=== PATIENT | male | born 1970 | race Hispanic/Latino ===

== ENCOUNTER 2017-07-07 00:38 | Inpatient (IN) | payer BC ==
[2017-07-07] MEDS ORDERED: Albuterol-Ipratrop 3 mg / 0.5 (3 ml) UD IH STA ×2 (01:05→01:06)
[2017-07-07] MEDS ORDERED: Magnesium Sulfate 2 GM in Sodium Chloride 0.9% 100 ML IVPB ONE (01:05)
[2017-07-07] MEDS: Albuterol-Ipratrop 3 mg / 0.5 (3 ml) UD IH STA ×2 (01:10→01:18)
[2017-07-07 01:20] LABS: VENOUS BLOOD PH 7.45 (7.32-7.43)
--- NOTE | 2017-07-07 01:22 | ED PDOC ---
Arrival/HPI - General Chief Complaint: Chest Pain Time Seen by Provider: 07/07/17 00:51 Historian: Patient - History of Present Illness Narrative History of Present Illness (Text): 07/07/17 01:05 46 year old male, whose past medical history include COPD, presents to the emergency department complaining of shortness of breath for the past 2-4 days associated with chest pain that began this morning. He reports taking his abudral pump prior to arrival with minimal relief. Patient states to be having cough and fever, but denies recent travel, any chills, nausea, vomiting, diarrhea, urinary symptoms, back pain, neck pain, headache, dizziness, or any other complaints. PMD: Dr. Willis Time/Duration: Other (this morning ) Symptom Onset: Gradual Symptom Course: Unchanged Activities at Onset: Light Context: Home Past Medical History - Provider Review Nursing Documentation Reviewed: Yes - Travel History Have you recently traveled outside [place] w/in the past 3 mons?: No - Tetanus Immunization Tetanus Immunization: Unknown - Pulmonary Hx Asthma: Yes Hx Chronic Obstructive Pulmonary Disease (COPD): Yes - Psychiatric Hx Depression: No Hx Emotional Abuse: No Hx Physical Abuse: No Hx Substance Use: No - Surgical History Hx Appendectomy: Yes Hx Splenectomy: Yes Hx Tonsillectomy: Yes - Suicidal Assessment Feels Threatened In Home Enviroment: No Family/Social History - Physician Review Nursing Documentation Reviewed: Yes Family/Social History: No Known Family HX Smoking Status: y Hx Alcohol Use: No Hx Substance Use: No Hx Substance Use Treatment: No Allergies/Home Meds Allergies/Adverse Reactions: Allergies No Known Allergies Allergy (Verified 12/05/13 09:17) Home Medications: Home Meds Medication Instructions Recorded Confirmed Zolpidem [Ambien] 10 mg PO HS 12/05/13 07/07/17 Review of Systems - Physician Review All systems were reviewed & negative as marked: Yes - Review of Systems Constitutional: Fevers. absent: Other (Chills) Respiratory: SOB Cardiovascular: Chest Pain Gastrointestinal: absent: Diarrhea, Nausea, Vomiting Genitourinary Male: absent: Dysuria, Frequency, Hematuria Musculoskeletal: absent: Back Pain, Neck Pain Neurological: absent: Headache, Dizziness Physical Exam Vital Signs Reviewed: Yes Vital Signs Temp Pulse Resp BP Pulse Ox 07/07/17 02:45 99.0 F 127 H 22 127/58 L 94 L 07/07/17 02:37 137 H 23 119/81 94 L 07/07/17 02:36 102 F H 07/07/17 01:28 145 H 26 H 156/82 H 96 07/07/17 00:45 99.1 F 136 H 15 162/88 H 91 L Temperature: Afebrile Blood Pressure: Hypertensive Pulse: Tachycardic Respiratory Rate: Normal Appearance: Positive for: Well-Appearing, Non-Toxic, Comfortable Pain Distress: None Mental Status: Positive for: Alert and Oriented X 3 - Systems Exam Head: Present: Atraumatic, Normocephalic Pupils: Present: PERRL Extroacular Muscles: Present: EOMI Conjunctiva: Present: Normal Mouth: Present: Moist Mucous Membranes Neck: Present: Normal Range of Motion Respiratory/Chest: Present: Wheezes (Mild expiratory bilateral wheeze). No: Respiratory Distress, Accessory Muscle Use Cardiovascular: Present: Normal S1, S2, Tachycardic. No: Murmurs Abdomen: Present: Normal Bowel Sounds. No: Tenderness, Distention, Peritoneal Signs Back: Present: Normal Inspection Upper Extremity: Present: Normal Inspection. No: Cyanosis, Edema Lower Extremity: Present: Normal Inspection. No: Edema Neurological: Present: GCS=15, CN II-XII Intact, Speech Normal Skin: Present: Warm, Dry, Normal Color. No: Rashes Psychiatric: Present: Alert, Oriented x 3, Normal Insight, Normal Concentration Medical Decision Making ED Course and Treatment: 07/07/17 01:05 Impression: 46 year old male presents complaining of shortness of breath that began 2-4 days ago and chest pain that began this morning. Plan: -- VBG -- EKG -- Labs: D Dimer -- Chest X-ray -- [place] -- IV Fluids -- Tylenol -- Blood Culture -- Urine Culture -- Urinalysis -- Reassess and disposition Progress Notes: EKG shows Sinus Tachycardia at 146 BPM with wide axis deviation. Interpreted by me. CXR Impression: As read by me, right middle love infiltrate. 07/07/17 03:[address] Willis who wishes to hold off on anticoagulation. Accepts patient into Remote Telemetry for pneumonia. - Lab Interpretations Lab Results: 07/07/17 00:55 07/07/17 01:50 Lab Results 07/07/17 02:30: Urine Color Yellow, Urine Appearance Cloudy, Urine pH 6.0, Ur Specific [place] 1.010, Urine Protein 30 H, Urine Glucose (UA) Negative, Urine Ketones Trace H, Urine Blood Large H, Urine Nitrate Negative, Urine Bilirubin Negative, Urine Urobilinogen 1.0 H, Ur Leukocyte Esterase Negative, Urine RBC 2 - 5, Urine WBC 0 - 2 07/07/17 01:50: Phosphorus 1.7 L, Magnesium 1.9, NT-Pro-B Natriuret Pep 323 07/07/17 01:50: Sodium 127 L, Chloride 96 L, Potassium 3.4 L, Carbon Dioxide 19 L, Anion Gap 15, BUN 14, Creatinine 1.0, Est GFR ( Amer) > 60, Est GFR ( Non-Af Amer) > 60, Random Glucose 137 H, Calcium 7.9 L, Total Bilirubin 1.0, AST 44, ALT 33, Alkaline Phosphatase 72, Lactate Dehydrogenase 804 H, Total Creatine Kinase 343 H, CK-MB (CK-2) 0.6, CK-MB (CK-2) % Cancelled, Troponin I < 0.01, Total Protein 6.9, Albumin 3.6, Globulin 3.3, Albumin/Globulin Ratio 1.1 07/07/17 01:39: POC Glucose (mg/dL) 143 H 07/07/17 00:55: PT 13.5 H, INR 1.25 H, APTT 41.1 H, D-Dimer, Quantitative 3.21 H 07/07/17 00:55: WBC 19.4 H, RBC 5.40, Hgb 17.6, Hct 49.2, MCV 91.1, MCH 32.6, MCHC 35.8, RDW 13.9, Plt Count 255, MPV 10.4, Gran % 85.7 H, Lymph % (Auto) 8.9 L, Hand % (Auto) 5.2, Eos % (Auto) 0.0 L, Baso % (Auto) 0.2, Gran # 16.61 H, Lymph # 1.7, Hand # 1.0 H, Eos # 0.0, Baso # 0.03 07/07/17 00:55: pO2 30, VBG pH 7.45 H, VBG pCO2 32.0 L, VBG HCO3 22.2, VBG Total CO2 23.2, VBG O2 Sat (Calc) 67.0 H, VBG Base Excess -1.0 L, VBG Potassium 3.7, Sodium 125.0 L, Chloride 93.0 L, Glucose 163 H, Lactate 2.7 H, FiO2 21.0, Venous Blood Potassium 3.7 I have reviewed the lab results: Yes - RAD Interpretation Radiology Orders: 07/07/17 00:51 CHEST PORTABLE [RAD] Stat - EKG Interpretation Interpreted by ED Physician: Yes Type: 12 lead EKG - Medication Orders Current Medication Orders: Discontinued Medications Acetaminophen (Tylenol 325mg Tab) 975 mg PO STAT STA Stop: 07/07/17 02:15 Last Admin: 07/07/17 02:36 Dose: 975 mg MAR Pain/Vitals Document 07/07/17 02:36 JOL (Rec: 07/07/17 02:36 [facility] [place] [id number] Pain Reassessment Is This A Pain ReAssessment? No Sleep Is patient sleeping during reassessment? No Presence of Pain Presence of Pain No Vitals Temperature (97.6 F-99.6 F) 102 F Temperature Source Oral Albuterol/Ipratropium (Duoneb 3 Mg/0.5 Mg (3 Ml) Ud) 3 ml IH STAT STA Stop: 07/07/17 01:05 Last Admin: 07/07/17 01:18 Dose: 3 ml Albuterol/Ipratropium (Duoneb 3 Mg/0.5 Mg (3 Ml) Ud) 3 ml IH STAT STA Stop: 07/07/17 01:06 Albuterol/Ipratropium (Duoneb 3 Mg/0.5 Mg (3 Ml) Ud) 3 ml IH STAT STA Stop: 07/07/17 01:07 Last Admin: 07/07/17 01:37 Dose: 3 ml Magnesium Sulfate 2 gm/ Sodium (Chloride) 104 mls @ 102 mls/hr IVPB ONCE ONE Stop: 07/07/17 02:06 Last Admin: 07/07/17 01:19 Dose: 102 mls/hr eMAR Start Stop Document 07/07/17 01:19 JOL (Rec: 07/07/17 01:19 [facility] [id number] Intravenous Solution Start Date 07/07/17 Start Time 01:19 End Date 07/07/17 End time 02:21 Total Infusion Time 62 Ceftriaxone Sodium (Rocephin 1 Gram Ivpb) 1 gm in 100 mls @ 200 mls/hr IVPB STAT STA PRN Reason: Protocol Stop: 07/07/17 01:57 Last Admin: 07/07/17 01:53 Dose: 200 mls/hr eMAR Start Stop Document 07/07/17 01:53 JOL (Rec: 07/07/17 01:53 [facility] [id number] Intravenous Solution Start Date 07/07/17 Start Time 01:53 End Date 07/07/17 End time 02:23 Total Infusion Time 30 Azithromycin (Zithromax 500mg In Ns) 500 mg in 250 mls @ 167 mls/hr IVPB STAT STA PRN Reason: Protocol Stop: 07/07/17 03:02 Last Admin: 07/07/17 02:24 Dose: 167 mls/hr eMAR Start Stop Document 07/07/17 02:24 JOL (Rec: 07/07/17 02:36 [facility] [id number] Intravenous Solution Start Date 07/07/17 Start Time 02:24 End Date 07/07/17 End time 03:54 Total Infusion Time 90 Sodium Chloride (Sodium Chloride 0.9%) 1,000 mls @ 999 mls/hr IV .Q1H1M STA Stop: 07/07/17 03:20 Last Admin: 07/07/17 01:40 Dose: 999 mls/hr eMAR Start Stop Document 07/07/17 01:40 JOL (Rec: 07/07/17 02:37 [facility] [id number] Intravenous Solution Start Date 07/07/17 Start Time 01:40 End Date 07/07/17 End time 02:41 Total Infusion Time 61 Methylprednisolone (Solu-Medrol) 125 mg IVP STAT STA Stop: 07/07/17 01:05 Last Admin: 07/07/17 01:10 Dose: 125 mg IVP Administration Document 07/07/17 01:10 JOL (Rec: 07/07/17 01:10 [facility] [id number] Charges for Administration # of IVP Administrations 1 - Scribe Statement The provider has reviewed the documentation as recorded by the Alessandro Walsh All medical record entries made by the Alessandro were at my direction and personally dictated by me. I have reviewed the chart and agree that the record accurately reflects my personal performance of the history, physical exam, medical decision making, and the department course for this patient. I have also personally directed, reviewed, and agree with the discharge instructions and disposition. Disposition/Present on Arrival - Present on Arrival Any Indicators Present on Arrival: No History of DVT/PE: No History of Uncontrolled Diabetes: No Urinary Catheter: No History of Decub. Ulcer: No History Surgical Site Infection Following: None - Disposition Have Diagnosis and Disposition been Completed?: Yes Diagnosis: Pneumonia Disposition: HOSPITALIZED Disposition Time: 03:00 Condition: STABLE
[2017-07-07 01:23] LABS: BASO # 0.03 K/mm3 (0.0-2.0); BASO % 0.2 % (0.0-3.0); GRAN # 16.61 (1.4-6.5); GRAN % 85.7 % (50.0-68.0); HEMATOCRIT 49.2 % (42.0-52.0); LYMPH # 1.7 (1.2-3.4); LYMPH % 8.9 % (22.0-35.0); MEAN CELL VOLUME 91.1 fl (80.0-105.0); MEAN CORPUSCULAR HEMOGLOBIN 32.6 pg (25.0-35.0); MEAN CORPUSCULAR HGB CONC 35.8 g/dl (31.0-37.0); MEAN PLATELET VOLUME 10.4 fl (7.0-11.0); MONO % 5.2 % (1.0-6.0); RED CELL DISTRIBUTION WIDTH 13.9 % (11.5-14.5); WHITE BLOOD COUNT 19.4 10^3/ul (4.5-11.0)
[2017-07-07] MEDS ORDERED: cefTRIAXone 1 gm 1 GM/100 ML BAG IVPB STA (01:28)
[2017-07-07] MEDS ORDERED: Azithromycin 500MG/NS 250ml 500 MG/250 ML BAG IVPB STA (01:33)
[2017-07-07 01:38] LABS: INR 1.25 (0.93-1.08); PARTIAL THROMBOPLASTIN TIME 41.1 Seconds (23.7-30.8)
[2017-07-07 02:12] LABS: ALB/GLOB RATIO 1.1 (1.1-1.8); ALKALINE PHOSPHATASE 72 U/L (38-126); ALT/SGPT 33 U/L (7-56); AST/SGOT 44 U/L (17-59); BLOOD UREA NITROGEN 14 mg/dL (7-21); CALCIUM 7.9 mg/dL (8.4-10.5); CARBON DIOXIDE 19 mmol/L (21-33); CHLORIDE 96 mmol/L (98-107); GFR AFRICAN-AMERICAN > 60; GLUCOSE,RANDOM 137 mg/dL (70-110); POTASSIUM 3.4 mmol/L (3.6-5.0); SODIUM 127 mmol/L (132-148); TOTAL PROTEIN 6.9 g/dL (5.8-8.3)
[2017-07-07 02:13] LABS: MAGNESIUM 1.9 mg/dL (1.7-2.2); PHOSPHOROUS 1.7 mg/dL (2.5-4.5)
[2017-07-07] MEDS ORDERED: Sodium Chloride 0.9% 1,000 ML IV STA ×3 (02:20→08:45)
[2017-07-07 02:28] LABS: TROPONIN I < 0.01 ng/mL
[2017-07-07 02:50] LABS: URINE BILIRUBIN NEGATIVE (NEGATIVE); URINE BLOOD LARGE (NEGATIVE); URINE GLUCOSE (UA) NEGATIVE (NEGATIVE); URINE KETONE TRACE mg/dL (NEGATIVE); URINE LEUKOCYTE ESTERASE NEGATIVE Leu/uL (NEGATIVE); URINE PROTEIN 30 mg/dL (<30 mg/dL)
[2017-07-07 03:03] LABS: D DIMER 3.21 mg/L FEU (0-0.50)
[2017-07-07 03:43] LABS: URINE APPEARANCE CLOUDY (CLEAR); URINE COLOR YELLOW (YELLOW)
[2017-07-07 04:15] LABS: VENOUS BLOOD GAS BASE EXCESS -4.4 mmol/L (0.0-2.0); VENOUS BLOOD PH 7.42 (7.32-7.43)
[2017-07-07 04:26] LABS: URINE WBC 0 - 2 /hpf (0-6)
[2017-07-07 05:17] VITALS: BMI 31.2
[2017-07-07 07:30] LABS: VENOUS BLOOD GAS BASE EXCESS -3.5 mmol/L (0.0-2.0); VENOUS BLOOD PH 7.32 (7.32-7.43)
--- NOTE | 2017-07-07 08:26 | RAD ---
HISTORY: chest pain COMPARISON: 09/30/2015. FINDINGS: LUNGS: There is consolidation in the right lower lobe. The left lung is clear. There is mild pulmonary venous congestion. PLEURA: No significant pleural effusion identified, no pneumothorax apparent. CARDIOVASCULAR: There is mild cardiomegaly. OSSEOUS STRUCTURES: No significant abnormalities. VISUALIZED UPPER ABDOMEN: Normal. OTHER FINDINGS: None. IMPRESSION: Right lower lobe pneumonia. Follow-up after medical management is recommended to ensure complete resolution.
[2017-07-07] MEDS ORDERED: Albuterol-Ipratrop 3 mg / 0.5 (3 ml) UD IH PRN (08:41)
[2017-07-07] MEDS ORDERED: Azithromycin 500MG/NS 250ml 500 MG/250 ML BAG IVPB SCH (11:25)
[2017-07-07] MEDS ORDERED: cefTRIAXone 1 gm 1 GM/100 ML BAG IVPB SCH (11:25)
[2017-07-07 11:26] LABS: VENOUS BLOOD GAS BASE EXCESS 0.3 mmol/L (0.0-2.0); VENOUS BLOOD PH 7.39 (7.32-7.43)
[2017-07-07] MEDS: Albuterol-Ipratrop 3 mg / 0.5 (3 ml) UD IH SCH ×4 (11:47→23:53)
--- NOTE | 2017-07-07 13:42 | HP ---
HISTORY OF PRESENT ILLNESS: The patient is a 46-year-old man with a long- standing smoking history and probable COPD who presented to [facility] ED for evaluation of a 3-day history of progressively worsening chest tightness, dyspnea, and pleuritic chest pain. The patient reports that approximately 3 days ago he was exposed to coworkers with URI type symptoms and subsequently developed his aforementioned symptoms. Over the course of the following 36 to 48 hours he developed increasing chest tightness with a sharp stabbing right sided chest pain as well as fevers, chills and rigors. Given the worsening severity of the symptoms, he presented to the ED for further evaluation. Upon arrival to the ED, he was noted to be tachycardiac with a pulse in the 150s and tachypneic with a respiratory rate of 26. A chest x-ray which was obtained demonstrated a right lower lobe pneumonia and the patient was subsequently admitted to the remote telemetry [facility] for continued management of right lower lobe pneumonia. This morning on examination the patient reports improvement since admission but continues to endorse pleuritic chest pain, but otherwise offers no complaints. PAST MEDICAL HISTORY: As per HPI. PAST SURGICAL HISTORY: As per HPI. ALLERGIES: NO KNOWN DRUG ALLERGIES. MEDICATIONS: Ambien 10 mg p.o. at bedtime p.r.n. FAMILY HISTORY: Noncontributory. SOCIAL HISTORY: The patient reports an active 30-pack year smoking history and social alcohol use. He denies illicit drug abuse. REVIEW OF SYSTEMS: A 14-point review of systems is negative except as per HPI. Further more is negative for lower extremity edema, hemoptysis, exertional dyspnea or palpitations. PHYSICAL EXAMINATION: VITAL SIGNS: Temperature 97.7, pulse 87, blood pressure 127/82, respiratory rate 20, oxygen saturation 97% on room air. GENERAL: No apparent distress. HEENT: PERRL. EOMI. No scleral icterus. No conjunctival pallor. NECK: No JVD. No bruits. LUNGS: Crackles midway to the right posterior hemithorax. CARDIOVASCULAR: Regular rate and rhythm. Normal S1 and S2. ABDOMEN: Normoactive bowel sounds. Soft, nontender, nondistended. EXTREMITIES: No edema. NEUROLOGIC: Awake, alert, and oriented x3. No focal motor deficits. LABORATORY DATA: WBC 19.4 with 86% neutrophils, hemoglobin 18, hematocrit 50, platelets 255. Sodium 127, potassium 3.4, chloride 96, bicarbonate 19, BUN 14, creatinine 1, glucose 137. IMAGING STUDIES: Chest x-ray demonstrates right lower lobe pneumonia. ASSESSMENT: The patient is a 46-year-old man with a long-standing smoking history and probable COPD who presented to [facility] for evaluation of a 3-day history of worsening dyspnea, cough productive of green sputum and malaise and who was admitted to the remote telemetry [facility] for management of right lower lobe pneumonia. PLAN: 1. Community-acquired pneumonia. Continue supplemental oxygen and bronchodilators as needed. We will check urine strep pneumonia and urine legionella. Dr. Lombardi of infectious disease is being consulted for further evaluation and recommendations. 2. Hyponatremia. Etiology is likely secondary to poor p.o. intake as the patient described poor oral intake over the preceding 3 days. We will continue with IV fluid hydration consisting of normal saline at 125 mL per hour. 3. Lactic acidosis. Labs demonstrate a lactate of 3.8. Etiology is likely secondary to sepsis in the setting of community-acquired pneumonia. Continue with IV fluid hydration as above. We will repeat a lactate in the morning. 4. Elevated D-dimer. Labs demonstrated a D-dimer of 3.21 on admission. This likely is secondary to the patient's underlying pneumonia as he does not endorse any risk factors for a pulmonary embolism. Furthermore, the patient is not tachypneic and not hypoxic with an oxygen saturation of 97% on room air. We will continue to monitor. 5. Prophylaxis. GI prophylaxis not indicated as the patient is eating. DVT prophylaxis is not indicated as the patient is ambulatory. CODE STATUS: Full code. Deacon Willis MD [place]
--- NOTE | 2017-07-07 14:25 | CARD ---
APPROVED REPORT EKG Measurement Heart [id number] <Conclusion> Poor data quality, interpretation may be adversely affected Sinus tachycardia Possible Left atrial enlargement Rightward axis Borderline ECG
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
[2017-07-07] MEDS ORDERED: Sodium Chloride 0.9% 1,000 ML IV SCH (18:30)
[2017-07-07] MEDS: guaiFENesin-Codeine 100-10mg/5ml Syrup (5 ml) UD PO PRN (20:42)
--- NOTE | 2017-07-07 22:46 | CP.PCM.PN ---
Subjective - Date & Time of Evaluation Date of Evaluation: 07/07/17 Time of Evaluation: 22:44 - Subjective Subjective: Nurse calls and tells that his vitals are as follows: RR 30-40/min HR 140/mi n 140/80 94% on 2L/min. T100.3*F I saw patient at bedside. States that he has sob, chest pain after coughing a lot. Denies sweating, palpitations. Here for PNA,COPD, sob, chills, fever. This 46 year old white male is admitted with 3 days history of dyspnea, chest tightness, pleuritic chest pain, cough. Has PMH of COPD, renal calculus, chronic back pain, smoker, spleenectomy, tonsillectomy. Objective - Vital Signs/Intake and Output Vital Signs (last 24 hours): Temp Pulse Resp BP Pulse Ox 98.9 F 120 H 19 140/86 93 L 07/07/17 20:48 07/07/17 20:48 07/07/17 19:01 07/07/17 19:01 07/07/17 20:48 Intake and Output: 07/07/17 07/08/17 18:59 06:59 Intake Total 1400 Output Total 4 Balance 1396 - Medications Medications: Current Medications Acetaminophen (Tylenol 325mg Tab) 650 mg PO Q6H PRN PRN Reason: Fever >100.4 F Last Admin: 07/07/17 16:09 Dose: 650 mg Albuterol/Ipratropium (Duoneb 3 Mg/0.5 Mg (3 Ml) Ud) 3 ml IH Q2H PRN PRN Reason: Shortness of Breath Last Admin: 07/07/17 20:31 Dose: 3 ml Albuterol/Ipratropium (Duoneb 3 Mg/0.5 Mg (3 Ml) Ud) 3 ml IH [id number] MARIO ALBERTO Last Admin: 07/07/17 20:19 Dose: 3 ml Guaifenesin/Codeine Phosphate (Robitussin W/Codeine) 5 ml PO Q4H PRN PRN Reason: Cough and congestion Last Admin: 07/07/17 20:42 Dose: 5 ml Ceftriaxone Sodium (Rocephin 1 Gram Ivpb) 1 gm in 100 mls @ 100 mls/hr IVPB DAILY MARIO ALBERTO PRN Reason: Protocol Stop: 07/16/17 11:26 Last Admin: 07/07/17 11:48 Dose: 100 mls/hr Azithromycin (Zithromax 500mg In Ns) 500 mg in 250 mls @ 167 mls/hr IVPB DAILY MARIO ALBERTO PRN Reason: Protocol Stop: 07/16/17 11:26 Last Admin: 07/07/17 11:48 Dose: 167 mls/hr Sodium Chloride (Sodium Chloride 0.9%) 1,000 mls @ 125 mls/hr IV .Q8H MARIO ALBERTO Last Admin: 07/07/17 18:29 Dose: 125 mls/hr Zolpidem Tartrate (Ambien) 10 mg PO HS PRN; Protocol PRN Reason: Insomnia Last Admin: 07/07/17 21:05 Dose: 10 mg - Labs Labs: PT 13.5 Seconds (9.9-11.8) H 07/07/17 00:55 INR 1.25 (0.93-1.08) H 07/07/17 00:55 APTT 41.1 Seconds (23.7-30.8) H 07/07/17 00:55 Laboratory Last Values WBC 19.4 10^3/ul (4.5-11.0) H 07/07/17 00:55 RBC 5.40 10^6/uL (3.5-6.1) 07/07/17 00:55 Hgb 17.6 g/dL (14.0-18.0) 07/07/17 00:55 Hct 49.2 % (42.0-52.0) 07/07/17 00:55 MCV 91.1 fl (80.0-105.0) 07/07/17 00:55 MCH 32.6 pg (25.0-35.0) 07/07/17 00:55 MCHC 35.8 g/dl (31.0-37.0) 07/07/17 00:55 RDW 13.9 % (11.5-14.5) 07/07/17 00:55 Plt Count 255 10^3/uL (120.0-450.0) 07/07/17 00:55 MPV 10.4 fl (7.0-11.0) 07/07/17 00:55 Gran % 85.7 % (50.0-68.0) H 07/07/17 00:55 Lymph % (Auto) 8.9 % (22.0-35.0) L 07/07/17 00:55 Br[place]ley % (Auto) 5.2 % (1.0-6.0) 07/07/17 00:55 Eos % (Auto) 0.0 % (1.5-5.0) L 07/07/17 00:55 Baso % (Auto) 0.2 % (0.0-3.0) 07/07/17 00:55 Gran # 16.61 (1.4-6.5) H 07/07/17 00:55 Lymph # 1.7 (1.2-3.4) 07/07/17 00:55 Brantley # 1.0 (0.1-0.6) H 07/07/17 00:55 Eos # 0.0 (0.0-0.7) 07/07/17 00:55 Baso # 0.03 K/mm3 (0.0-2.0) 07/07/17 00:55 PT 13.5 Seconds (9.9-11.8) H 07/07/17 00:55 INR 1.25 (0.93-1.08) H 07/07/17 00:55 APTT 41.1 Seconds (23.7-30.8) H 07/07/17 00:55 D-Dimer, Quantitative 3.21 mg/L FEU (0-0.50) H 07/07/17 00:55 pO2 23 mm/Hg (30-55) L 07/07/17 11:10 VBG pH 7.39 (7.32-7.43) 07/07/17 11:10 VBG pCO2 42.0 (40-60) 07/07/17 11:10 VBG HCO3 25.4 mmol/l (21-28) 07/07/17 11:10 VBG Total CO2 26.7 mmol.L (22-28) 07/07/17 11:10 VBG O2 Sat (Calc) 45.2 % (40-65) 07/07/17 11:10 VBG Base Excess 0.3 mmol/L (0.0-2.0) 07/07/17 11:10 VBG Potassium 4.4 mmol/L (3.6-5.2) 07/07/17 11:10 Sodium 129.0 mmol/L (132-148) L 07/07/17 11:10 Chloride 96.0 mmol/L (98-107) L 07/07/17 11:10 Glucose 222 mg/dl (75-110) H 07/07/17 11:10 Lactate 3.8 mmol/L (0.7-2.1) H 07/07/17 11:10 FiO2 21.0 % 07/07/17 11:10 Sodium 127 mmol/L (132-148) L 07/07/17 01:50 Potassium 3.4 mmol/L (3.6-5.0) L 07/07/17 01:50 Chloride 96 mmol/L (98-107) L 07/07/17 01:50 Carbon Dioxide 19 mmol/L (21-33) L 07/07/17 01:50 Anion Gap 15 (10-20) 07/07/17 01:50 BUN 14 mg/dL (7-21) 07/07/17 01:50 Creatinine 1.0 mg/dL (0.5-1.4) 07/07/17 01:50 Est GFR ( Amer) > 60 07/07/17 01:50 Est GFR (Non-Af Amer) > 60 07/07/17 01:50 POC Glucose (mg/dL) 143 mg/dL (65-110) H 07/07/17 01:39 Random Glucose 137 mg/dL (70-110) H 07/07/17 01:50 Calcium 7.9 mg/dL (8.4-10.5) L 07/07/17 01:50 Phosphorus 1.7 mg/dL (2.5-4.5) L 07/07/17 01:50 Magnesium 1.9 mg/dL (1.7-2.2) 07/07/17 01:50 Total Bilirubin 1.0 mg/dL (0.2-1.3) 07/07/17 01:50 AST 44 U/L (17-59) 07/07/17 01:50 ALT 33 U/L (7-56) 07/07/17 01:50 Alkaline Phosphatase 72 U/L (38-126) 07/07/17 01:50 Lactate Dehydrogenase 804 U/L (333-699) H 07/07/17 01:50 Total Creatine Kinase 343 U/L (35-230) H 07/07/17 01:50 CK-MB (CK-2) 0.6 ng/mL (0.0-3.6) 07/07/17 01:50 CK-MB (CK-2) % Cancelled 07/07/17 01:50 Troponin I < 0.01 ng/mL 07/07/17 01:50 NT-Pro-B Natriuret Pep 323 pg/mL (0-450) 07/07/17 01:50 Total Protein 6.9 g/dL (5.8-8.3) 07/07/17 01:50 Albumin 3.6 g/dL (3.0-4.8) 07/07/17 01:50 Globulin 3.3 gm/dL 07/07/17 01:50 Albumin/Globulin Ratio 1.1 (1.1-1.8) 07/07/17 01:50 Procalcitonin 1.79 NG/ML (0.19-0.49) H 07/07/17 11:28 Venous Blood Potassium 4.4 mmol/L (3.6-5.2) 07/07/17 11:10 Urine Color Yellow (YELLOW) 07/07/17 02:30 Urine Appearance Cloudy (CLEAR) 07/07/17 02:30 Urine pH 6.0 (4.7-8.0) 07/07/17 02:30 Ur Specific [place] 1.010 (1.005-1.035) 07/07/17 02:30 Urine Protein 30 mg/dL (<30 mg/dL) H 07/07/17 02:30 Urine Glucose (UA) Negative mg/dL (NEGATIVE) 07/07/17 02:30 Urine Ketones Trace mg/dL (NEGATIVE) H 07/07/17 02:30 Urine Blood Large (NEGATIVE) H 07/07/17 02:30 Urine Nitrate Negative (NEGATIVE) 07/07/17 02:30 Urine Bilirubin Negative (NEGATIVE) 07/07/17 02:30 Urine Urobilinogen 1.0 E.U./dL (<1 E.U./dL) H 07/07/17 02:30 Ur Leukocyte Esterase Negative Tawanna/uL (NEGATIVE) 07/07/17 02:30 Urine RBC 2 - 5 /hpf (0-2) 07/07/17 02:30 Urine WBC 0 - 2 /hpf (0-6) 07/07/17 02:30 Ur L.pneumophila Ag Positive (NEGATIVE) H 07/07/17 13:23 - Constitutional Appears: Well, Other (Mild respiratory distress.) - Head Exam Head Exam: ATRAUMATIC, NORMAL INSPECTION, NORMOCEPHALIC - Eye Exam Eye Exam: Normal appearance - ENT Exam ENT Exam: Normal External Ear Exam - Neck Exam Neck Exam: Normal Inspection - Respiratory Exam Respiratory Exam: Rales (Bilateral basal.), Respiratory Distress (Mild.). absent: Accessory Muscle Use, Rhonchi, Wheezes, Stridor - Cardiovascular Exam Cardiovascular Exam: Tachycardia, REGULAR RHYTHM, +S1 (Normal.), +S2 (Normal.). absent: JVD - GI/Abdominal Exam GI & Abdominal Exam: absent: Distended - Rectal Exam Rectal Exam: Deferred - Exam Additional comments: Deferred. - Extremities Exam Extremities Exam: Normal Inspection - Back Exam Back Exam: NORMAL INSPECTION - Neurological Exam Neurological Exam: Alert, Awake, Oriented x3 - Psychiatric Exam Psychiatric exam: Normal Affect, Normal Mood - Skin Skin Exam: Normal Color Assessment and Plan - Assessment and Plan (Free Text) Assessment: Tachypnea. Tachycardia. Pneumonia. R/O FL. Elevated D-dimer. Leukocytosis. R/o Sepsis. COPD. Obesity. Hypokalemia. Hypophosphatemia. Smoker. Chronic back pain. Plan: CBC with diff. BMP. Magnesium. Phosphorous. Troponin. BNP. EKG.------------->Sinus tachycardia.Inverted T in lead II, Q in V2. Lovenox 40mg SC stat. CXR.--------------------> Increase in bilateral pneumonia, ? pulmonary edema. Lopressor 5 mg IV Stat. Stat nebulizer treatment with Xopenex 1.25mg. DC duoneb, replace with Xopenex. Lasix 40 mg IV stat. Sodium phosphate 15 mMols x2.
[2017-07-07] MEDS ORDERED: Metoprolol 1 mg/ml Inj IVP STA (22:51)
[2017-07-07] MEDS ORDERED: Levalbuterol 1.25 MG/3 ML Inhal Soln UD IH STA (23:13)
[2017-07-07] MEDS ORDERED: Enoxaparin 40 mg Syringe SC STA (23:14)
[2017-07-08 00:11] LABS: VENOUS BLOOD GAS BASE EXCESS -1.7 mmol/L (0.0-2.0); VENOUS BLOOD PH 7.39 (7.32-7.43)
[2017-07-08 00:12] LABS: BASO # 0.01 K/mm3 (0.0-2.0); GRAN # 23.34 (1.4-6.5); GRAN % 94.5 % (50.0-68.0); HEMATOCRIT 43.3 % (42.0-52.0); LYMPH # 0.6 (1.2-3.4); LYMPH % 2.6 % (22.0-35.0); MEAN CELL VOLUME 90.2 fl (80.0-105.0); MEAN CORPUSCULAR HEMOGLOBIN 32.9 pg (25.0-35.0); MEAN CORPUSCULAR HGB CONC 36.5 g/dl (31.0-37.0); MEAN PLATELET VOLUME 10.7 fl (7.0-11.0); MONO # 0.7 (0.1-0.6); MONO % 2.9 % (1.0-6.0); PLATELET COUNT 252 10^3/uL (120.0-450.0); WHITE BLOOD COUNT 24.7 10^3/ul (4.5-11.0)
[2017-07-08 00:16] LABS: BLOOD UREA NITROGEN 19 mg/dL (7-21); CALCIUM 8.6 mg/dL (8.4-10.5); CARBON DIOXIDE 25 mmol/L (21-33); CHLORIDE 98 mmol/L (98-107); GFR AFRICAN-AMERICAN > 60; GLUCOSE,RANDOM 133 mg/dL (70-110); MAGNESIUM 2.2 mg/dL (1.7-2.2); POTASSIUM 3.9 mmol/L (3.6-5.0); SODIUM 133 mmol/L (132-148)
[2017-07-08 00:26] LABS: PHOSPHOROUS 1.4 mg/dL (2.5-4.5)
[2017-07-08] MEDS ORDERED: Sodium Phosphate 15 MMOLE in Sodium Chloride 0.9% 250 ML IVPB ONE ×2 (00:27→06:00)
[2017-07-08 00:51] LABS: TROPONIN I 0.01 ng/mL
[2017-07-08 01:01] LABS: NEUTROPHIL 80 % (50.0-70.0)
[2017-07-08 01:02] LABS: BAND 15 % (0-2); PLATELET ESTIMATE NORMAL (NORMAL)
[2017-07-08] MEDS: guaiFENesin-Codeine 100-10mg/5ml Syrup (5 ml) UD PO PRN (01:12)
[2017-07-08] MEDS: Levalbuterol 0.63 MG/3 ML Inhal Soln UD IH SCH ×5 (04:30→20:08)
[2017-07-08] MEDS ORDERED: Metoprolol 1 mg/ml Inj IVP STA (05:28)
[2017-07-08 07:49] LABS: ARTERIAL BLOOD GAS HCO3 21.3 mmol/L (21-28); ARTERIAL BLOOD GAS O2 CAPACITY 22.2 mL/dl (16-24); ARTERIAL BLOOD GAS O2 CONTENT 22.1 ML/dl (15-23); ARTERIAL BLOOD GAS PH 7.49 (7.35-7.45); ARTERIAL BLOOD HGB O2 SAT 96.8 % (95.0-98.0); CARBOXYHEMOGLOBIN 1.5 % (0.5-1.5); HHB 0.5 % (0-5); METHEMOGLOBIN 1.2 % (0.0-3.0)
--- NOTE | 2017-07-08 07:55 | RAD ---
HISTORY: tachypnea, tachycardia COMPARISON: Portal chest 11/17/2016. FINDINGS: LUNGS: Interval bilateral perihilar patchy density is increased and on the could represent worsening pneumonia. PLEURA: No significant pleural effusion identified, no pneumothorax apparent. CARDIOVASCULAR: Prominent central hilar vascular markings are appreciated suspicious for pulmonary venous congestion. Further clinical correlation is advised as worsening pneumonia remains a possibility as discussed above. OSSEOUS STRUCTURES: No significant abnormalities. VISUALIZED UPPER ABDOMEN: Normal. OTHER FINDINGS: None. IMPRESSION: Worsening pulmonary venous congestion versus pneumonia bilaterally. Clinically correlate further.
[2017-07-08 08:00] LABS: BASO # 0.01 K/mm3 (0.0-2.0); GRAN # 22.28 (1.4-6.5); GRAN % 92.6 % (50.0-68.0); HEMATOCRIT 44.2 % (42.0-52.0); LYMPH # 0.9 (1.2-3.4); LYMPH % 3.7 % (22.0-35.0); MEAN CORPUSCULAR HGB CONC 36.7 g/dl (31.0-37.0); MONO # 0.9 (0.1-0.6); MONO % 3.7 % (1.0-6.0); RED CELL DISTRIBUTION WIDTH 14.1 % (11.5-14.5); WHITE BLOOD COUNT 24.1 10^3/ul (4.5-11.0)
[2017-07-08 08:01] LABS: VENOUS BLOOD GAS BASE EXCESS -0.4 mmol/L (0.0-2.0); VENOUS BLOOD PH 7.45 (7.32-7.43)
[2017-07-08 08:12] LABS: ALB/GLOB RATIO 1.1 (1.1-1.8); ALKALINE PHOSPHATASE 76 U/L (38-126); ALT/SGPT 41 U/L (7-56); AST/SGOT 86 U/L (17-59); BILIRUBIN,TOTAL 0.6 mg/dL (0.2-1.3); BLOOD UREA NITROGEN 23 mg/dL (7-21); CALCIUM 8.4 mg/dL (8.4-10.5); CARBON DIOXIDE 24 mmol/L (21-33); CHLORIDE 95 mmol/L (98-107); GFR AFRICAN-AMERICAN > 60; GLUCOSE,RANDOM 121 mg/dL (70-110); POTASSIUM 3.7 mmol/L (3.6-5.0); SODIUM 131 mmol/L (132-148); TOTAL PROTEIN 7.3 g/dL (5.8-8.3)
--- NOTE | 2017-07-08 08:12 | PCM.RRT ---
BICYCLE MECHANIC Nurse Assessment - Situation Date: 07/08/17 Time BICYCLE MECHANIC was called: 07:15 BICYCLE MECHANIC Responder Arrival Time: 07:18 BICYCLE MECHANIC Location:: [address] [place] [address] Room Number: 369/02 BICYCLE MECHANIC Reason for Call: Respiratory Distress, O2 Saturation below 90% BICYCLE MECHANIC Called By: RN - IV IV Inserted during BICYCLE MECHANIC?: No - Respiratory Oxygen Delivery Method: BiPAP @% Received Nebulizer Treatments:: Yes Was the Patient Ventilated with Bag/Mask 100% O2?: No Secretions Suctioned?: No Was the Patient Intubated?: No Was the Patient Placed on a Ventilator?: No - Medication Medications Administered During BICYCLE MECHANIC: xopenex, tylenol, lasix, zofran - Diagnostic Test Ordered EKG: Yes Chest X-Ray: No (done this am 3am) CT Scan: Yes (ct angio r/o pe) - Stat Labs Ordered BICYCLE MECHANIC Stat Labs Ordered: CBC, BMP, TROPONIN, LACTIC ACID, BLOOD C&S X2, ABG CPR started during BICYCLE MECHANIC?: No - Vital Signs Vital Sign: Rapid Response Vital Sign Blood Pressure 159/85 Pulse Rate 140 Respiratory Rate 27 Temperature 103 F Oxygen Saturation 85 - Finger Stick Blood Glucose Finger Stick Blood Glucose: 107 - Sepsis Screen Part 1 Sepsis Screen Part 1: Temperature over 100.6F - Sepsis Screen Part 2 Sepsis Screen Part 2: WBC over 12,000 - Recommendations Notifications: Attending Physician, Family or Designated Caregiver I.Reason for BICYCLE MECHANIC - A) Acute Change in Patient: Subjective: Pt is 46 y/o M admitted for pneumonia, became tachycardic and tachypnic with a HR of 140's and RR of 40's causing BICYCLE MECHANIC to be called. On arrival, pt BP was hypertensive with BP of 158/90. Patient was saturating 95% on nonrebreather. Upon exam, pt in respiratory distress and hyperventilating. Pt was then placed on BIPAP. Temperature was found to be 103.0 F, given Tylenol, Zofran for nausea , and Lasix 40 mg IV. Blood gas, CBC, CMP, and blood cultures, UA, urine culture , CXR, EKG were obtained. Primary doctor and hospitalist arrived at bedside. Plan discussed with primary, will order CT angio of chest due to elevated d- dimer and tachycardia. - Respiratory Oxygen Delivery Method: BiPAP @% - Constitutional Appears: Non-toxic, In Acute Distress - Head Head Exam: ATRAUMATIC, NORMAL INSPECTION, NORMOCEPHALIC - Respiratory Exam Respiratory Exam: Decreased Breath Sounds, Prolonged Expiratory Phase, Rales (B/ l lower lobes), Rhonchi (RLL), Respiratory Distress - Cardiovascular Exam Cardiovascular Exam: Tachycardia, +S1, +S2 - GI/Abdominal Exam GI & Abdominal Exam: Soft, Normal Bowel Sounds. absent: Tenderness - Neurological Exam Neurological Exam: Alert, Awake, Oriented x3 - Extremities Exam Extremities Exam: absent: Calf Tenderness, Pedal Edema Plan - Assessment of Findings&Treatment Plan Plan: Follow lab work Follow CT angio, CXR Consult Pulm and ICU ID notified about positive urine legionella. Zithromax changed to Levaquin 750 mg daily Primary at bedside and agreed to current plan
[2017-07-08] MEDS: levoFLOXacin 750 mg in D5W 150 ML BAG IVPB SCH (08:37)
--- NOTE | 2017-07-08 08:51 | RAD ---
HISTORY: SHORTNESS of breath COMPARISON: Portable chest 07/07/2017. FINDINGS: LUNGS: Bilateral perihilar/ medial basilar patchy density persists. The lack of peripheral reticular changes may indicate this pattern is more add pneumonia consequence and than pulmonary venous congestion. Further clinical correlation is advised. PLEURA: No significant pleural effusion identified, no pneumothorax apparent. CARDIOVASCULAR: Pulmonary venous congestion pattern remains a possibility though less definitive given lack of peripheral reticular changes. Continued clinical correlation is advised. Cardiac size remains normal. OSSEOUS STRUCTURES: No significant abnormalities. VISUALIZED UPPER ABDOMEN: Normal. OTHER FINDINGS: None. IMPRESSION: Bilateral mid to inferior pulmonary infiltrates persist though consideration of pulmonary venous congestion remains recommended. Further clinical correlation is advised. No definite significant interval change.
[2017-07-08] MEDS ORDERED: Cefepime 1gm in NS 100ml 1 GM/100 ML BAG IVPB SCH (09:15)
[2017-07-08] MEDS ORDERED: Meropenem 1g/NS 100mL IVPB 100 ML IVPB SCH (09:15)
--- NOTE | 2017-07-08 09:16 | CT ---
PROCEDURE: CTA chest dated 07/08/17 HISTORY: SOB, High D-Dimer, Pneumonia (Legionella pneumonia). Additional history as per nurse's questionnaire: Splenectomy COPD/asthma and renal disease. Back surgery. COMPARISON: Comparison made with chest radiographs 07/08/2017 at 0011 hours and chest radiograph 07/07/2017 at 2315 hours. TECHNIQUE: Axial computed tomography images were obtained of the chest in the pulmonary arterial phase of enhancement. Coronal and sagittal reformatted images were created and reviewed. Intravenous contrast dose: 150 cc Omnipaque 350 contrast material Radiation dose: Total exam DLP = 677.05 mGy-cm. This CT exam was performed using one or more of the following dose reduction techniques: Automated exposure control, adjustment of the mA and/or kV according to patient size, and/or use of iterative reconstruction technique. Evaluation of the pulmonary artery is limited due to suboptimal injection of opacification of the pulmonary arteries and further limited by motion artifact as well as diffuse bilateral infiltrates FINDINGS: PULMONARY ARTERIES: The visualized portions of the pulmonary trunk, right and left main,, lobar and proximal segmental branches of the pulmonary arteries appear relatively well opacified with no definitive filling defects. The distal segmental and subsegmental branches are poorly seen due to the aforementioned limitations which once again including suboptimal opacification, motion diffuse bilateral on infiltrates.... The pulmonary trunk measures approximately 3.26. AORTA: Ascending thoracic aorta measures approximately 3.58 cm LUNGS: Diffuse bilateral infiltrates with lower lobe predominance. . Air bronchograms are present. No significant effusion is identified. . There are a few small blebs within the lung apices PLEURAL SPACES: No evidence of pneumothorax or significant effusion HEART: Heart size is borderline/mildly enlarged. There appears to be a small amount of fluid wake and pulmonary trunk. . LYMPH NODES: There are few small nonspecific mediastinal lymph nodes. Mildly enlarged right hilar lymph node measuring approximately 19.6 mm. mildly enlarged left-sided hilar lymph node measuring 18.0 mm. The central airways are midline and patent. No large central endobronchial lesions are identified. There is a small hiatal hernia with slight wall thickening of the distal esophagus that could be due to protrusion of gastric mucosa. The possibility of esophagitis not excluded. BONES, CHEST WALL: Unremarkable. No fracture or destructive lesion OTHER FINDINGS: Evaluation of the thyroid gland is limited due to crossing streak and beam hardening artifact. The right lobe thyroid gland is slightly prominent. IMPRESSION: Diffuse bilateral infiltrates with lower lobe predominance. Limited evaluation of the pulmonary arteries demonstrate definitive evidence of central pulmonary embolus. Bilateral hilar lymphadenopathy. See above discussion for additional details and findings.
--- NOTE | 2017-07-08 10:08 | CON ---
PULMONARY CONSULTATION DATE: 07/08/2017 REASON FOR CONSULTATION: Pneumonia. REFERRING PHYSICIAN: Deacon Willis MD HISTORY OF PRESENT ILLNESS: The patient is a 46-year-old male, with past medical history significant for chronic obstructive pulmonary disease, positive extensive smoking history, who presents to [facility] with a 5-day history of worsening shortness of breath at rest, dyspnea on exertion, cough, and sputum production. The patient also states to right-sided chest discomfort over the past 2 days. There is no history of coughing up of blood. The right-sided chest discomfort is increased with deep breathing and coughing. The patient did have a high fever this morning in (103). No history of chills or infectious exposure. No history of night sweats, weight loss or appetite change prior to the above events. No history of leg or calf pains. No history of syncope or diaphoresis. No history of recent travel or trauma. REVIEW OF SYSTEMS: No history of nausea, vomiting or diarrhea. No acute urinary symptoms. No new neurologic complaints. Rest of the review of systems is negative. ALLERGIES: NO KNOW ALLERGIES. SOCIAL HISTORY: Positive for extensive tobacco usage. No alcohol. FAMILY HISTORY: No inheritable diseases. HOME MEDICATIONS: Include Ambien. PHYSICAL EXAMINATION: GENERAL: The patient is moderately short of breath at the present time. He is not using accessory muscles for breathing. VITAL SIGNS: Temperature is 103.1, pulse 132, respiratory rate approximately 24/26, blood pressure 147/85. Oxygen saturation on BiPAP - last measured - 98%. HEENT: Normocephalic, atraumatic. NECK: No JVD. CARDIOVASCULAR: Positive S1, S2. No S3 gallop. LUNGS: Crackles at both lower lobes. Minimal bilateral rhonchi. No wheezing. EXTREMITIES: No clubbing, cyanosis or edema. Calves are nontender to palpation. GI: Abdomen is soft, nontender, nondistended. Bowel sounds are positive. SKIN: No acute rash. NEUROLOGIC: Exam limited at the present time. PERTINENT LABORATORY DATA: Chest x-ray was done late last night and reviewed. There are infiltrates noted in the right middle lobe and right lower lobe areas. There is also a possible retrocardiac infiltrate in the left lower lobe. Arterial blood gas was done on BiPAP. Results are: pH 7.49, pCO2 28, pO2 of 296. CBC: White count 24.1, hemoglobin 16.2, hematocrit 44.2, platelets of 239. Complete metabolic profile: Glucose 133, phosphorus 1.4. Rest of the metabolic profile is within normal limits. Procalcitonin was done and is high - 1.79. Urine for Legionella pneumophila antigen is positive. IMPRESSION 1. Community-acquired pneumonia, Legionella. 2. Sepsis syndrome. 3. Chronic obstructive pulmonary disease. 4. Acute bronchitis. 5. Tachyarrhythmias. PLAN: The patient presents to [facility] with a 5-day history of worsening pulmonary symptoms. In addition, a rapid response was called earlier this morning because of tachycardia. I did review the chest x-ray as above. There are infiltrates noted in the right middle lobe, right lower lobe and possibly the left lower lobes. CT scan of the chest with angiogram protocol has been ordered for additional/closer evaluation. I have also reviewed the laboratory data. A significant leukocytosis is noted - which is probably appropriate at this point in time for the patient. As above, the urine for Legionella antigen is also positive. The antibiotic coverage has been changed. Dr. Lomabrdi (infectious disease) is aware of the new findings. On physical exam, there is mild bronchospasm noted. I will continue the current nebulizer treatments and add inhaled steroids this morning. The clinical status of the patient is certainly guarded at this point in time. ICU consult/ evaluation has been ordered. Additional pulmonary intervention will be based on the above results, as well as the clinical status of the patient. I did discuss the above with Dr. Willis at length. I have also discussed the above with the medical residents. Thank you very much for this pulmonary consultation. Yo Montes De Oca MD [place]
--- NOTE | 2017-07-08 10:18 | PN ---
SUBJECTIVE: The patient was seen and examined at bedside on the remote telemetry glynn. Overnight, the patient was noted to decompensate with increased work of breathing, tachypnea and tachycardia. He was also noted to develop a fever of 103. A rapid response was called and the patient was placed on BiPAP with improvement in his pulse oximetry from 85% to 98%. The patient was also evaluated by Dr. Montes De Oca of pulmonary and critical care medicine as well as the ICU team after his CT of the chest demonstrated worsening bilateral infiltrates. The patient was also found to have a positive urine Legionella antigen and antimicrobials were adjusted to Levaquin 750 mg IV daily. OBJECTIVE: VITAL SIGNS: Tc 103, Tm 103, pulse 130, blood pressure 140/90, respiratory rate 28, and oxygen saturation 100% on BiPAP. GENERAL: Moderate respiratory distress with accessory muscle use. HEENT: PERRL. EOMI. No scleral icterus. No conjunctival pallor. NECK: No JVD. No bruits. LUNGS: Diffuse scattered rhonchi with wheeze and bibasilar crackles. CARDIOVASCULAR: Tachycardiac. Normal S1 and S2. ABDOMEN: Normoactive bowel sounds. Soft, nontender, and nondistended. EXTREMITIES: No edema. NEUROLOGIC: Awake, alert, and oriented x3. No focal motor deficits. LABORATORY DATA: WBC of 24 with 93% neutrophils, hemoglobin of 16, hematocrit of 44, and platelets of 239. Sodium of 131, potassium of 3.7, chloride of 95, bicarbonate of 24, BUN of 23, creatinine of 1, and glucose of 121. Urine; Legionella positive. Blood cultures with no growth to date. ASSESSMENT: The patient is a 46-year-old man with a longstanding smoking history and probable COPD who presented to [facility] for evaluation of a 3-day history of worsening dyspnea, cough productive of green sputum and malaise and who was admitted to the remote telemetry glynn for management of right lower lobe pneumonia who is now found to have a positive urine Legionella antigen and is pending intensive care unit evaluation for his decompensated respiratory status. PLAN: 1. Community-acquired pneumonia secondary to Legionella, as above the antimicrobials have been adjusted to Levaquin 750 mg IV daily. Input from Dr. Montes De Oca noted and greatly appreciated. ICU evaluation is pending. Continue with supplemental oxygen, bronchodilators and BiPAP as needed. 2. Hyponatremia. Etiology is likely secondary to poor p.o. intake as well as secondary to Legionella pneumonia. Continue to encourage p.o. intake and continue with gentle IV fluid hydration with isotonic saline. 3. Lactic acidosis, resolved. The patient is status post aggressive IV fluid hydration. 4. Elevated D-dimer. Etiology is likely secondary to the patient's underlying pneumonia and less likely secondary to underlying pulmonary embolism. CT of the chest with IV contrast has been obtained and we will await a final results. 5. Prophylaxis. GI prophylaxis not indicated as the patient is eating. DVT prophylaxis not indicated as the patient is ambulatory. CODE STATUS: Full code. Deacon Willis MD MTDD
--- NOTE | 2017-07-08 10:40 | CP.PCM.PN ---
Subjective - Date & Time of Evaluation Date of Evaluation: 07/08/17 Time of Evaluation: 10:30 - Subjective Subjective: Patient has been upgraded to the ICU because of worsening cough and respiratory distress and hypoxia. Noted to be febrile at 103 F overnight. Currently on ventimask. Objective - Vital Signs/Intake and Output Vital Signs (last 24 hours): Temp Pulse Resp BP Pulse Ox 99.8 F H 130 H 22 140/90 88 L 07/08/17 08:15 07/08/17 08:55 07/08/17 08:15 07/08/17 08:15 07/08/17 08:15 Intake and Output: 07/08/17 07/08/17 06:59 18:59 Intake Total 480 Balance 480 - Medications Medications: Current Medications Acetaminophen (Tylenol 325mg Tab) 650 mg PO Q6H PRN PRN Reason: Fever >100.4 F Last Admin: 07/07/17 23:00 Dose: 650 mg Budesonide (Pulmicort Respules) 0.5 mg IH [id number] [facility] Guaifenesin/Codeine Phosphate (Robitussin W/Codeine) 5 ml PO Q4H PRN PRN Reason: Cough and congestion Last Admin: 07/08/17 01:12 Dose: 5 ml Sodium Phosphate 15 mmole/ (Sodium Chloride) 255 mls @ 42.5 mls/hr IVPB ONCE ONE Stop: 07/08/17 11:59 Vancomycin HCl (Vancomycin 1gm) 1 gm in 250 mls @ 167 mls/hr IVPB Q12H [facility] PRN Reason: Protocol Meropenem 1g/NS 100mL IVPB (Meropenem 1g/Ns 100ml Ivpb) 1 gm in 100 mls @ 100 mls/hr IVPB Q8 [facility] PRN Reason: Protocol Levalbuterol HCl (Xopenex) 0.63 mg IH Q2H PRN PRN Reason: Shortness of Breath Levalbuterol HCl (Xopenex) 0.63 mg IH [id number] [facility] Last Admin: 07/08/17 08:50 Dose: 0.63 mg Levofloxacin/Dextrose (Levaquin 750mg) 750 mg IVPB Q24H [facility] Last Admin: 07/08/17 08:37 Dose: 750 mg Methylprednisolone (Solu-Medrol) 60 mg IVP Q8 [facility] Zolpidem Tartrate (Ambien) 10 mg PO HS PRN; Protocol PRN Reason: Insomnia Last Admin: 07/07/17 21:05 Dose: 10 mg - Labs Labs: 07/08/17 07:51 07/08/17 07:51 PT 13.5 Seconds (9.9-11.8) H 07/07/17 00:55 INR 1.25 (0.93-1.08) H 07/07/17 00:55 APTT 41.1 Seconds (23.7-30.8) H 07/07/17 00:55 - Constitutional Appears: In Acute Distress - Head Exam Head Exam: NORMAL INSPECTION - Neck Exam Neck Exam: absent: Meningismus - Respiratory Exam Respiratory Exam: Decreased Breath Sounds, Rales (scattered) - Cardiovascular Exam Cardiovascular Exam: +S1, +S2 - GI/Abdominal Exam GI & Abdominal Exam: Soft. absent: Tenderness Assessment and Plan - Assessment and Plan (Free Text) Plan: Assessment Severe sepsis with acute hypoxic respiratory failure due to multifocal community -acquired pneumonia, probably Legionellosis, R/O pyogenic bacterial pneumonia S/P splenectomy COPD with significant smoking history S/P tonsillectomy history of renal stones chronic back pain Plan Added Vancomycin and changed Rocephin to Merrem for now since patient's respiratory function is worsening; repeat blood cx; reviewed CT chest which shows worsening pulmonary edema and multifocality of the pneumonia; will trend PCT as well we have also changed Zithromax to Levaquin (some studies have shown a trend towards better outcomes with use of quinolones over macrolides) will monitor clinically discussed with ICU team
[2017-07-08] MEDS: Vancomycin 1gm in NS 250ml 1 GM/250 ML BAG IVPB SCH ×2 (11:06→22:00)
--- NOTE | 2017-07-08 11:19 | CP.PCM.PN ---
Subjective - Date & Time of Evaluation Date of Evaluation: 07/08/17 Time of Evaluation: 08:30 - Subjective Subjective: CRITICAL CARE PROGRESS NOTE Patient is 46yo male with PMhx of splenectomy, active smoker, 2pks per day x 40y , presented to the hospital, with cough, chest tightness, and SOB, found to have CAP. Patients urine Legionella+. Patient wa son the general medical floor earlier today when an [employer]ENDER was called for tachypnia, tachycardia and hypoxia, patient was 88% on room air. Patient transferred to MICU. Currently on BIPAP 09/19/100%, sat 100%, comfortable. ID is following. Objective - Vital Signs/Intake and Output Vital Signs (last 24 hours): Temp Pulse Resp BP Pulse Ox 99.8 F H 109 H 49 H 140/90 99 07/08/17 08:15 07/08/17 10:51 07/08/17 10:51 07/08/17 08:15 07/08/17 10:51 - Medications Medications: Current Medications Acetaminophen (Tylenol 325mg Tab) 650 mg PO Q6H PRN PRN Reason: Fever >100.4 F Last Admin: 07/07/17 23:00 Dose: 650 mg Budesonide (Pulmicort Respules) 0.5 mg IH [id number] [facility] Guaifenesin/Codeine Phosphate (Robitussin W/Codeine) 5 ml PO Q4H PRN PRN Reason: Cough and congestion Last Admin: 07/08/17 01:12 Dose: 5 ml Sodium Phosphate 15 mmole/ (Sodium Chloride) 255 mls @ 42.5 mls/hr IVPB ONCE ONE Stop: 07/08/17 11:59 Vancomycin HCl (Vancomycin 1gm) 1 gm in 250 mls @ 167 mls/hr IVPB Q12H [facility] PRN Reason: Protocol Last Admin: 07/08/17 11:06 Dose: 167 mls/hr Meropenem 1g/NS 100mL IVPB (Meropenem 1g/Ns 100ml Ivpb) 1 gm in 100 mls @ 100 mls/hr IVPB Q8 [facility] PRN Reason: Protocol Levalbuterol HCl (Xopenex) 0.63 mg IH Q2H PRN PRN Reason: Shortness of Breath Levalbuterol HCl (Xopenex) 0.63 mg IH [id number] [facility] Last Admin: 07/08/17 11:10 Dose: 0.63 mg Levofloxacin/Dextrose (Levaquin 750mg) 750 mg IVPB Q24H [facility] Last Admin: 07/08/17 08:37 Dose: 750 mg Methylprednisolone (Solu-Medrol) 60 mg IVP Q8 [facility] Last Admin: 07/08/17 09:58 Dose: 60 mg Zolpidem Tartrate (Ambien) 10 mg PO HS PRN; Protocol PRN Reason: Insomnia Last Admin: 07/07/17 21:05 Dose: 10 mg - Labs Labs: 07/08/17 07:51 07/08/17 07:51 PT 13.5 Seconds (9.9-11.8) H 07/07/17 00:55 INR 1.25 (0.93-1.08) H 07/07/17 00:55 APTT 41.1 Seconds (23.7-30.8) H 07/07/17 00:55 - Constitutional Appears: Well, No Acute Distress - Head Exam Head Exam: ATRAUMATIC - Eye Exam Eye Exam: EOMI - ENT Exam ENT Exam: Mucous Membranes Moist - Neck Exam Neck Exam: Full ROM - Respiratory Exam Additional comments: bilateral crackles at bases, no wheezing - Cardiovascular Exam Cardiovascular Exam: RRR, +S1, +S2 - GI/Abdominal Exam GI & Abdominal Exam: Soft, Normal Bowel Sounds - Extremities Exam Extremities Exam: Normal Inspection Assessment and Plan - Assessment and Plan (Free Text) Assessment: 46yo male with severe CAP, Lengionella positive, hypoxia CAP, Severe Legionella Positive Hypoxia SOB Hx of Smoking - currently afebrile, HD stable, comfortable on BIPAP, sat 100%, RR 18-20 - Urine Lg positive, on IV Levaquin - IV Abx broadened to Merrem, Vanco, and Levaquin - Steroids added, in addition to duonebs - CT Chest with NO PE, but diffuse alveolar infiltrates predominant in lower lobes Recommend: - cont with BIPAP, titrate FiO2 down, goal sat 92% - Pulmonary and ID following - IV Steroids Solumedrol - Duonebs q4hr - IV abd as per ID, Merrem, Vanco IV, Levaquin IV - check urine Strep - check procal - would hold off IVF for now - monitor HH - keep NPO for now while on BIPQAP - GI ppx - DVT ppx, HSQ - Monitor in MICU critical care time 40 minutes
[2017-07-08] MEDS: Enoxaparin 40 mg Syringe SC SCH (12:20)
--- NOTE | 2017-07-08 12:22 | CARD ---
APPROVED REPORT EKG Measurement Heart [id number] <Conclusion> Sinus tachycardia with premature atrial complexes
[2017-07-08] MEDS: Meropenem 1g/NS 100mL IVPB 1 GM/100 ML PIGGYBACK IVPB SCH ×2 (13:20→22:50)
[2017-07-08] MEDS ORDERED: Promethazine/Cod 6.25mg-10mg/5ml Syr UD PO PRN (14:23)
[2017-07-08] MEDS ORDERED: Lactated Ringer's 1,000 ML IV SCH (17:30)
--- NOTE | 2017-07-08 18:39 | CP.PCM.PN ---
Subjective - Date & Time of Evaluation Date of Evaluation: 07/08/17 Time of Evaluation: 18:36 - Subjective Subjective: Patient seen on PM rounds. Patient remains on BIPAP, FiO2 titrated down to 60%, o2 sat 95%, breathing comfortably, speaking in full sentences. Patient remains tenuous, and remains high risk for intubation, although FiO2 requirements have gone down significantly. Will repeat an ABG. Patient is on Merrem, IV Vanco, and Levaquin. HD stable, afebrile. Will continue to monitor closely. Objective - Vital Signs/Intake and Output Vital Signs (last 24 hours): Temp Pulse Resp BP Pulse Ox 99.8 F H 88 46 H 163/87 H 96 07/08/17 08:15 07/08/17 17:40 07/08/17 17:40 07/08/17 17:02 07/08/17 17:40 - Medications Medications: Current Medications Acetaminophen (Tylenol 325mg Tab) 650 mg PO Q6H PRN PRN Reason: Fever >100.4 F Last Admin: 07/07/17 23:00 Dose: 650 mg Budesonide (Pulmicort Respules) 0.5 mg IH [id number] [facility] Enoxaparin Sodium (Lovenox) 40 mg SC DAILY [facility] PRN Reason: Protocol Last Admin: 07/08/17 12:20 Dose: 40 mg Guaifenesin/Codeine Phosphate (Robitussin W/Codeine) 5 ml PO Q4H PRN PRN Reason: Cough and congestion Last Admin: 07/08/17 01:12 Dose: 5 ml Vancomycin HCl (Vancomycin 1gm) 1 gm in 250 mls @ 167 mls/hr IVPB Q12H [facility] PRN Reason: Protocol Last Admin: 07/08/17 11:06 Dose: 167 mls/hr Meropenem 1g/NS 100mL IVPB (Meropenem 1g/Ns 100ml Ivpb) 1 gm in 100 mls @ 100 mls/hr IVPB Q8 [facility] PRN Reason: Protocol Last Admin: 07/08/17 13:20 Dose: 100 mls/hr Lactated Ringer's (Lactated Ringer's) 1,000 mls @ 75 mls/hr IV .[id number] [facility] Last Admin: 07/08/17 17:30 Dose: 75 mls/hr Levalbuterol HCl (Xopenex) 0.63 mg IH Q2H PRN PRN Reason: Shortness of Breath Levalbuterol HCl (Xopenex) 0.63 mg IH [id number] [facility] Last Admin: 07/08/17 16:03 Dose: 0.63 mg Levofloxacin/Dextrose (Levaquin 750mg) 750 mg IVPB Q24H [facility] Last Admin: 07/08/17 08:37 Dose: 750 mg Methylprednisolone (Solu-Medrol) 60 mg IVP Q8 [facility] Last Admin: 07/08/17 13:19 Dose: 60 mg Pantoprazole Sodium (Protonix Inj) 40 mg IVP DAILY [facility] Promethazine HCl/Codeine (Phenergan/Codeine Oral Syrup) 5 ml PO Q4H PRN PRN Reason: Cough and congestion Zolpidem Tartrate (Ambien) 10 mg PO HS PRN; Protocol PRN Reason: Insomnia Last Admin: 07/07/17 21:05 Dose: 10 mg - Labs Labs: 07/08/17 07:51 07/08/17 07:51 PT 13.5 Seconds (9.9-11.8) H 07/07/17 00:55 INR 1.25 (0.93-1.08) H 07/07/17 00:55 APTT 41.1 Seconds (23.7-30.8) H 07/07/17 00:55
[2017-07-08 19:17] LABS: ARTERIAL BLOOD GAS PH 7.47 (7.35-7.45)
[2017-07-08] MEDS: Budesonide 0.5 mg/2 ml Inhal Susp UD IH SCH (20:08)
[2017-07-08] MEDS ORDERED: Propofol 10 mg/ml 2,000 MG/200 ML VIAL ONE (20:57)
[2017-07-08] MEDS ORDERED: Etomidate 20 mg/10ml Inj IV ONE (21:27)
[2017-07-08] MEDS ORDERED: Succinylcholine 200 mg/10 ml Inj IV ONE (21:29)
--- NOTE | 2017-07-08 21:46 | PCM.PROC ---
Procedures Attestation:: I certify that I have explained the specified Operation(s) or Procedure(s), risks, benefits and reasonable alternatives to the Patient and/or other person responsible. The opportunity was given to ask questions and all questions answered - Intubation Time Out Performed: Yes Sedative: Etomidate Paralytic: Succinylholine Laryngoscope: Glidescope Assist Device Used: Bougie ET Tube Size: 7.5 ET Tube Secured Locarion: Lips ET Tube Placement Confirmation: Breath Sounds Equal Bilaterally, No Breath Sounds Over Epigastrum, Confirmation w/Capnometry Patient Tolerated Procedure: Well, No Complications Procedure Immediate Complications: Difficult Intubation Additional comments: Assistance from mobile application tester ED physician required due to difficult intubation (due to very anterior cord location and difficulties with adequate sedation). However , no complications and non-traumatic. Placement confirmed with CXR afterwards.
[2017-07-08] MEDS: Fentanyl 1000mcg/100ml NS 1,000 MCG/100 ML BAG IV PRN (21:50)
[2017-07-08] MEDS ORDERED: Midazolam 100 mg/100ml in NS 100 MG/100 ML SOL IV PRN (21:51)
--- NOTE | 2017-07-08 21:58 | CP.PCM.PN ---
Subjective - Date & Time of Evaluation Date of Evaluation: 07/09/17 Time of Evaluation: 06:00 - Subjective Subjective: Overnight Events: -Last night, despite being on Bipap, the pt developed increased work of breathing and tachypnea -Consequently, with help of ED physician, Dr. Florez, the pt was electively intubated. -Throughout most of night, his O2 sats hovered around 89%-90% (despite UYU7=354 %). -ABG at 4:33am this morning was: 7.32/52/71/26.8 (at OHB5=940%). -Given b/l infiltrates on CXR, alongside PaO2/FIO2= 71 (w/ no clear e/o underlying cardiac etiology), pt appears to have developed ARDS (2/2 Legionella PNA). -Therefore, a low tidal volume ventilation (LTVV) strategy was initiated this morning around 5am. -Specifically, on OOU6=643%, PEEP was titrated to 22 and TV decreased to 370, after which, plateau pressures reached goal of < 30 and O2 sat improved to 96% . -Lasix 40mg IV x 1 was also given around 5am this morning (approx UOP overnight = 2L) -Pt remained hemodynamically stable throughout entire night. -Majority of above events were explained to pts (who was at bedside much of the night). -Repeat ABG ordered for 7am (which should reflect LTVV changes made to vent after 5am). Objective - Vital Signs/Intake and Output Vital Signs (last 24 hours): Temp Pulse Resp BP Pulse Ox 99.8 F H 94 H 50 H 154/91 H 94 L 07/08/17 08:15 07/08/17 20:40 07/08/17 20:40 07/08/17 20:00 07/08/17 20:40 - Medications Medications: Current Medications Acetaminophen (Tylenol 325mg Tab) 650 mg PO Q6H PRN PRN Reason: Fever >100.4 F Last Admin: 07/07/17 23:00 Dose: 650 mg Budesonide (Pulmicort Respules) 0.5 mg IH [id number] [facility] Last Admin: 07/08/17 20:08 Dose: 0.5 mg Enoxaparin Sodium (Lovenox) 40 mg SC DAILY [facility] PRN Reason: Protocol Last Admin: 07/08/17 12:20 Dose: 40 mg Guaifenesin/Codeine Phosphate (Robitussin W/Codeine) 5 ml PO Q4H PRN PRN Reason: Cough and congestion Last Admin: 07/08/17 01:12 Dose: 5 ml Vancomycin HCl (Vancomycin 1gm) 1 gm in 250 mls @ 167 mls/hr IVPB Q12H [facility] PRN Reason: Protocol Last Admin: 07/08/17 11:06 Dose: 167 mls/hr Meropenem 1g/NS 100mL IVPB (Meropenem 1g/Ns 100ml Ivpb) 1 gm in 100 mls @ 100 mls/hr IVPB Q8 [facility] PRN Reason: Protocol Last Admin: 07/08/17 13:20 Dose: 100 mls/hr Lactated Ringer's (Lactated Ringer's) 1,000 mls @ 75 mls/hr IV .[id number] [facility] Last Admin: 07/08/17 17:30 Dose: 75 mls/hr Fentanyl Citrate (Fentanyl Citrate/Sodium Chloride 1 Mg/100 Ml) 1,000 mcg in 100 mls @ 2 mls/hr IV .Q24H PRN; Protocol; 20 MCG/HR PRN Reason: TITRATE PER MD ORDER Midazolam 100 mg/100ml in NS (Midazolam 100 Mg/100ml In Ns) 100 mg in 100 mls @ 1 mls/hr IV .Q24H PRN; Protocol; 1 MG/HR PRN Reason: Sedation Levalbuterol HCl (Xopenex) 0.63 mg IH Q2H PRN PRN Reason: Shortness of Breath Levalbuterol HCl (Xopenex) 0.63 mg IH [id number] [facility] Last Admin: 07/08/17 20:08 Dose: 0.63 mg Levofloxacin/Dextrose (Levaquin 750mg) 750 mg IVPB Q24H [facility] Last Admin: 07/08/17 08:37 Dose: 750 mg Methylprednisolone (Solu-Medrol) 60 mg IVP Q8 [facility] Last Admin: 07/08/17 13:19 Dose: 60 mg Pantoprazole Sodium (Protonix Inj) 40 mg IVP DAILY [facility] Promethazine HCl/Codeine (Phenergan/Codeine Oral Syrup) 5 ml PO Q4H PRN PRN Reason: Cough and congestion Zolpidem Tartrate (Ambien) 10 mg PO HS PRN; Protocol PRN Reason: Insomnia Last Admin: 07/07/17 21:05 Dose: 10 mg - Labs Labs: 07/08/17 07:51 07/08/17 07:51 PT 13.5 Seconds (9.9-11.8) H 07/07/17 00:55 INR 1.25 (0.93-1.08) H 07/07/17 00:55 APTT 41.1 Seconds (23.7-30.8) H 07/07/17 00:55
[2017-07-08 22:53] LABS: ARTERIAL BLOOD GAS HCO3 25.3 mmol/L (21-28); ARTERIAL BLOOD GAS O2 CONTENT 20.7 ML/dl (15-23); ARTERIAL BLOOD GAS PH 7.27 (7.35-7.45); ARTERIAL BLOOD HGB O2 SAT 96.2 % (95.0-98.0); CARBOXYHEMOGLOBIN 1.6 % (0.5-1.5); HHB 1.2 % (0-5)
[2017-07-08] MEDS ORDERED: Sodium Chloride 0.9% 1,000 ML IV STA (23:08)
[2017-07-08] MEDS ORDERED: Sodium Chloride 0.9% 1,000 ML IV SCH (23:15)
[2017-07-09] MEDS: Levalbuterol 0.63 MG/3 ML Inhal Soln UD IH SCH ×6 (02:03→20:00)
[2017-07-09 04:36] LABS: ARTERIAL BLOOD GAS HCO3 26.8 mmol/L (21-28); ARTERIAL BLOOD GAS O2 CAPACITY 19.5 mL/dl (16-24); ARTERIAL BLOOD GAS O2 CONTENT 18.7 ML/dl (15-23); ARTERIAL BLOOD GAS PH 7.32 (7.35-7.45); ARTERIAL BLOOD HGB O2 SAT 93.7 % (95.0-98.0); CARBOXYHEMOGLOBIN 1.5 % (0.5-1.5); HHB 4.1 % (0-5); METHEMOGLOBIN 0.8 % (0.0-3.0)
[2017-07-09] MEDS: Levalbuterol 0.63 MG/3 ML Inhal Soln UD IH PRN ×2 (05:10→10:11)
[2017-07-09] MEDS: Meropenem 1g/NS 100mL IVPB 1 GM/100 ML PIGGYBACK IVPB SCH ×2 (05:32→13:50)
[2017-07-09 07:09] LABS: BASO # 0.03 K/mm3 (0.0-2.0); BASO % 0.1 % (0.0-3.0); GRAN # 22.27 (1.4-6.5); GRAN % 90.6 % (50.0-68.0); HEMATOCRIT 42.4 % (42.0-52.0); LYMPH # 0.9 (1.2-3.4); LYMPH % 3.8 % (22.0-35.0); MEAN CELL VOLUME 92.6 fl (80.0-105.0); MEAN CORPUSCULAR HEMOGLOBIN 32.3 pg (25.0-35.0); MEAN CORPUSCULAR HGB CONC 34.9 g/dl (31.0-37.0); MEAN PLATELET VOLUME 10.8 fl (7.0-11.0); MONO # 1.4 (0.1-0.6); MONO % 5.5 % (1.0-6.0); RED CELL DISTRIBUTION WIDTH 15.2 % (11.5-14.5); WHITE BLOOD COUNT 24.6 10^3/ul (4.5-11.0)
[2017-07-09 07:11] LABS: ALKALINE PHOSPHATASE 105 U/L (38-126); ALT/SGPT 63 U/L (7-56); AST/SGOT 99 U/L (17-59); BILIRUBIN,TOTAL 0.6 mg/dL (0.2-1.3); BLOOD UREA NITROGEN 28 mg/dL (7-21); CARBON DIOXIDE 28 mmol/L (21-33); CHLORIDE 100 mmol/L (98-107); GFR AFRICAN-AMERICAN > 60; GLUCOSE,RANDOM 136 mg/dL (70-110); MAGNESIUM 2.5 mg/dL (1.7-2.2); PHOSPHOROUS 3.9 mg/dL (2.5-4.5); POTASSIUM 3.7 mmol/L (3.6-5.0); SODIUM 140 mmol/L (132-148); TOTAL PROTEIN 6.6 g/dL (5.8-8.3)
[2017-07-09] MEDS: Budesonide 0.5 mg/2 ml Inhal Susp UD IH SCH ×2 (07:29→20:00)
[2017-07-09 07:51] LABS: ABG MECHANICAL RATE 22; ARTERIAL BLOOD GAS HCO3 27.8 mmol/L (21-28); ARTERIAL BLOOD GAS PH 7.32 (7.35-7.45); ATERIAL BLOOD GAS PEEP 18
[2017-07-09] MEDS ORDERED: Levalbuterol 0.63 MG/3 ML Inhal Soln UD IH STA (08:15)
--- NOTE | 2017-07-09 08:15 | PN ---
PULMONARY NOTE DATE: 07/09/2017 SUBJECTIVE: The patient remains in the ICU. He is currently intubated and sedated. PHYSICAL EXAMINATION: VITAL SIGNS: Temperature is 97.0, pulse 86, respirations 22/22, blood pressure 122/83. Oxygen saturation on the ventilator is 98%. HEENT: Normocephalic, atraumatic. No JVD. CARDIOVASCULAR: Positive S1, S2. No S3. LUNGS: Crackles at both lower lobes. Less bilateral rhonchi. No wheezing. EXTREMITIES: No clubbing, cyanosis or edema. GI: Abdomen is soft, nondistended. Bowel sounds are positive. SKIN: No acute rash. NEUROLOGIC: Exam limited at the present time. LABORATORY DATA: Chest x-ray was done this morning and reviewed. There are extensive progressive bilateral pulmonary infiltrates noted. Arterial blood gas was done on assist control of 22, tidal volume 400, FiO2 100% and 20 of PEEP. Results are: PH 7.32, pCO2 of 52, pO2 of 71. IMPRESSION: 1. Respiratory failure. 2. Acute respiratory distress syndrome. 3. Community-acquired pneumonia, Legionella. 4. Sepsis syndrome. 5. Acute bronchitis. 6. Tachyarrhythmias - improved. PLAN: The patient is currently intubated and sedated in the ICU. I did discuss the case with the nursing staff at length. Apparently, late yesterday, the patient began to experience severe, progressive shortness of breath. He was then intubated for airway protection. I did review the chest x-ray from this morning. The chest x-ray shows progressive extensive infiltrates bilaterally. I have also reviewed the arterial blood gas. A significant alveolar-arterial gradient is noted. There is also a mild respiratory acidosis. I did discuss the case with the expert medical writer and at length. I am encouraged that the fevers have been defervescing over the past shift. However, the x-ray continues to deteriorate. The patient is on multiple antibiotic therapy as per Infectious Disease. However, the patient is immunosuppressed (status post splenectomy). Thus, I will proceed with bronchoscopy this morning-- for inspection of the airways and for specimen retrieval. I did go over bronchoscopy with the patient's at length. 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 On physical exam, there is less bronchospasm noted. I will continue the current nebulizer treatments and intravenous steroids for now. The patient remains critically ill. All are aware. I will discuss the above with the entire ICU team the next few moments. I will discuss the above with Dr. Willis later this morning. Yo Montes De Oca MD MTDD
[2017-07-09 08:28] VITALS: RESP 31
[2017-07-09] MEDS: Midazolam 100 mg/100ml in NS 100 MG/100 ML SOL IV PRN ×2 (08:37→09:39)
--- NOTE | 2017-07-09 08:54 | RAD ---
HISTORY: post intubation COMPARISON: 07/08/2017. FINDINGS: The endotracheal tube terminates 6.5 cm proximal to the sebastian. LUNGS: There is confluent airspace disease in both lungs with near complete opacification of the lungs and with relative sparing of the upper lobes. PLEURA: No significant pleural effusion identified, no pneumothorax apparent. CARDIOVASCULAR: Normal. OSSEOUS STRUCTURES: No significant abnormalities. VISUALIZED UPPER ABDOMEN: Normal. OTHER FINDINGS: None. IMPRESSION: Interval worsening of confluent airspace disease in both lungs which may represent worsening pneumonia or pulmonary edema. Clinical correlation and follow-up is advised.
--- NOTE | 2017-07-09 08:59 | RAD ---
HISTORY: follow up COMPARISON: 07/08/2017 FINDINGS: The endotracheal tube terminates 4.5 cm proximal to the sebastian LUNGS: There is redemonstration of confluent airspace disease in both with no significant interval change. PLEURA: No significant pleural effusion identified, no pneumothorax apparent. CARDIOVASCULAR: Stable. OSSEOUS STRUCTURES: No significant abnormalities. VISUALIZED UPPER ABDOMEN: Normal. OTHER FINDINGS: None. IMPRESSION: No significant interval change in extensive bilateral pulmonary consolidation/pneumonia versus edema. Follow-up is advised.
--- NOTE | 2017-07-09 09:01 | BRONCH ---
PROCEDURE DATE: 07/09/2017 INDICATION FOR THE PROCEDURE: Bronchoscopy. REASON FOR BRONCHOSCOPY: Pneumonia with respiratory failure. PROCEDURE: Fiberoptic bronchoscopy was done at the bedside via the endotracheal tube. The vocal cords were not visualized. There was moderate diffuse inflammation of the airways noted bilaterally. There were no significant secretions noted. There was no active bleeding. There was no endobronchial lesions identified. Bronchoalveolar lavage was done of the right lower lobe and sent for multiple specimens. The patient tollerated the procedure very well. I also instructed the ICU team to check with Dr. Lombardi(ID) on any additional studies he wound want. I also discussed the case and bronchoscopy findings with the at length after the procedure. I will also discuss the above with Dr. Willis. Yo Montes De Oca MD MTDJade
[2017-07-09] MEDS: Cisatracurium Besylate 200 MG in Sodium Chloride 0.9% 250 ML IV PRN ×2 (09:09→09:19)
--- NOTE | 2017-07-09 09:18 | CARD ---
APPROVED REPORT EXAM: Two-dimensional and M-mode echocardiogram with Doppler and color Doppler. Other Information Quality : PoorRhythm : INDICATION LVH/EF 2D DIMENSIONS Left Atrium (2D)3.9 (1.6-4.0cm)IVSd1.0 (0.7-1.1cm) LVDd4.8 (3.9-5.9cm)PWd1.1 (0.7-1.1cm) LVDs3.4 (2.5-4.0cm)FS (%) 30.1 % LVEF (%)57.0 (>50%) M-Mode DIMENSIONS Aortic Root3.20 (2.2-3.7cm)Aortic Cusp Exc.1.90 (1.5-2.0cm) Aortic Valve AoV Peak Ahwbcljw092.0cm/Aurelio Peak GR.9mmHg Mitral Valve MV E Dsqmvjgl53.3cm/sMV A Qmkojups73.5cm/sE/A ratio1.2 TDI Lateral E' Peak V14.20cm/sMedial E' Peak V9.85cm/sE/Lateral E'6.8 E/Medial E'9.8 Pulmonary Valve PV Peak Rkuocztg80.5cm/sPV Peak Grad.2mmHg Tricuspid Valve TR Peak Kwzksgts925ux/sRAP [id number] Peak Gr.15mmHg [id number] LEFT VENTRICLE The left ventricle is normal size. There is normal left ventricular wall thickness. The left ventricular function is normal. The left ventricular ejection fraction is within the normal range. There is normal LV segmental wall motion. RIGHT VENTRICLE The right ventricle is normal size. ATRIA The left atrium size is normal. The right atrium size is normal. The interatrial septum is intact with no evidence for an atrial septal defect. AORTIC VALVE The aortic valve is normal in structure. MITRAL VALVE The mitral valve is normal in structure. TRICUSPID VALVE The tricuspid valve is not well visualized. PULMONIC VALVE The pulmonic valve is not well visualized. GREAT VESSELS The aortic root is normal in size. PERICARDIAL EFFUSION There is no pericardial effusion. <Conclusion> Suboptimal study. The left ventricle is normal size. There is normal left ventricular wall thickness. The left ventricular function is normal.
--- NOTE | 2017-07-09 09:20 | CARD ---
APPROVED REPORT EKG Measurement Heart [id number] <Conclusion> Sinus tachycardia NSSTW changes Possible reversal of V1 and V2
--- NOTE | 2017-07-09 09:49 | CP.PCM.PN ---
Subjective - Date & Time of Evaluation Date of Evaluation: 07/09/17 Time of Evaluation: 09:10 - Subjective Subjective: Noted events overnight. Patient had to be intubated since patient was getting fatigued with tachypnea. No fevers overnight. Objective - Vital Signs/Intake and Output Vital Signs (last 24 hours): Temp Pulse Resp BP Pulse Ox 97 F L 86 22 122/83 97 07/09/17 04:00 07/09/17 06:00 07/09/17 06:00 07/09/17 06:00 07/09/17 06:00 Intake and Output: 07/08/17 07/09/17 18:59 06:59 Intake Total 2910 Balance 2910 - Medications Medications: Current Medications Acetaminophen (Tylenol 325mg Tab) 650 mg PO Q6H PRN PRN Reason: Fever >100.4 F Last Admin: 07/07/17 23:00 Dose: 650 mg Budesonide (Pulmicort Respules) 0.5 mg IH [id number] [facility]ERTO Last Admin: 07/08/17 20:08 Dose: 0.5 mg Enoxaparin Sodium (Lovenox) 40 mg SC DAILY [facility] AL[facility]ERTO PRN Reason: Protocol Last Admin: 07/08/17 12:20 Dose: 40 mg Guaifenesin/Codeine Phosphate (Robitussin W/Codeine) 5 ml PO Q4H PRN PRN Reason: Cough and congestion Last Admin: 07/08/17 01:12 Dose: 5 ml Vancomycin HCl (Vancomycin 1gm) 1 gm in 250 mls @ 167 mls/hr IVPB Q12H [facility]ERT[facility] PRN Reason: Protocol Last Admin: 07/08/17 22:00 Dose: 167 mls/hr Meropenem 1g/NS 100mL IVPB (Meropenem 1g/Ns 100ml Ivpb) 1 gm in 100 mls @ 100 mls/hr IVPB Q8 [facility]ERT[facility] PRN Reason: Protocol Last Admin: 07/09/17 05:32 Dose: 100 mls/hr Fentanyl Citrate (Fentanyl Citrate/Sodium Chloride 1 Mg/100 Ml) 1,000 mcg in 100 mls @ 2 mls/hr IV .Q24H PRN; Protocol; 20 MCG/HR PRN Reason: TITRATE PER MD ORDER Last Admin: 07/08/17 21:50 Dose: 300 mcg/hr, 30 mls/hr Midazolam 100 mg/100ml in NS (Midazolam 100 Mg/100ml In Ns) 100 mg in 100 mls @ 1 mls/hr IV .Q24H PRN; Protocol; 1 MG/HR PRN Reason: Sedation Last Admin: 07/08/17 21:55 Dose: 6 mg/hr, 6 mls/hr Levalbuterol HCl (Xopenex) 0.63 mg IH Q2H PRN PRN Reason: Shortness of Breath Last Admin: 07/09/17 05:10 Dose: 0.63 mg Levalbuterol HCl (Xopenex) 0.63 mg IH [id number] [facility]ERT[facility] Last Admin: 07/09/17 04:45 Dose: 0.63 mg Levofloxacin/Dextrose (Levaquin 750mg) 750 mg IVPB Q24H [facility]ERT[facility] Last Admin: 07/08/17 08:37 Dose: 750 mg Methylprednisolone (Solu-Medrol) 60 mg IVP Q8 [facility] AL[facility]ERTO Last Admin: 07/09/17 05:33 Dose: 60 mg Pantoprazole Sodium (Protonix Inj) 40 mg IVP DAILY [facility] Promethazine HCl/Codeine (Phenergan/Codeine Oral Syrup) 5 ml PO Q4H PRN PRN Reason: Cough and congestion Zolpidem Tartrate (Ambien) 10 mg PO HS PRN; Protocol PRN Reason: Insomnia Last Admin: 07/07/17 21:05 Dose: 10 mg - Labs Labs: 07/08/17 07:51 07/08/17 07:51 PT 13.5 Seconds (9.9-11.8) H 07/07/17 00:55 INR 1.25 (0.93-1.08) H 07/07/17 00:55 APTT 41.1 Seconds (23.7-30.8) H 07/07/17 00:55 - Constitutional Appears: Other (Intubated and sedated) - ENT Exam Additional comments: ET tube in place - Neck Exam Neck Exam: absent: Meningismus - Respiratory Exam Respiratory Exam: Rales (scattered) - Cardiovascular Exam Cardiovascular Exam: +S1, +S2 - GI/Abdominal Exam GI & Abdominal Exam: Soft. absent: Tenderness Assessment and Plan - Assessment and Plan (Free Text) Plan: Assessment Severe sepsis with ventilator-dependent acute hypoxic respiratory failure due to multifocal community-acquired pneumonia, probably Legionellosis, R/O pyogenic bacterial pneumonia S/P splenectomy COPD with significant smoking history S/P tonsillectomy history of renal stones chronic back pain Plan continue Vancomycin, Merrem and Levaquin day 2; reviewed CT chest which shows worsening pulmonary edema and multifocality of the pneumonia; will trend PCT as well; follow up BAL results (done today) we have changed Zithromax to Levaquin (some studies have shown a trend towards better outcomes with use of quinolones over macrolides) will continue to monitor clinically discussed with ICU team
--- NOTE | 2017-07-09 10:01 | PN ---
SUBJECTIVE: The patient was seen and examined at bedside in the ICU. Overnight the patient was intubated due to impending respiratory failure secondary to Legionella pneumonia. This morning he remains intubated and sedated but his oxygenation is improving as per ABG. PHYSICAL EXAMINATION VITAL SIGNS: Temperature 98.8, pulse 86, blood pressure 122/83, respiratory rate 22, and oxygen saturation 97% on 100% FiO2. GENERAL: Intubated and sedated. HEENT: PERRL. No scleral icterus. ETT in place. NECK: No JVD. LUNGS: Coarse transmitted upper airway sounds with diffuse rhonchi. CARDIOVASCULAR: Regular rate and rhythm. Normal S1 and S2. ABDOMEN: Normoactive bowel sounds. Soft, nontender. Nondistended. EXTREMITIES: No edema. NEUROLOGIC: Awake, alert and oriented x3. No focal motor deficits. LABORATORY DATA: WBC 24.6 with 90% neutrophils, hemoglobin 15, hematocrit 42, and platelets 232. Chemistry reviewed and unremarkable. ASSESSMENT: The patient is a 46-year-old man with a longstanding smoking history and probable COPD who presented to [facility] for evaluation of a 3-day history of worsening dyspnea, cough productive of green sputum and malaise and who was initially admitted to the remote telemetry [facility]nn for management of right lower lobe pneumonia who was subsequently found to have positive urine Legionella antigen and who is now s/p transfer to the ICU s/ p intubation for impending acute hypoxic respiratory failure. PLAN: 1. Community-acquired pneumonia secondary to Legionella, input from Dr. Montes De Oca of pulmonary and critical care medicine noted and greatly appreciated. The patient remains intubated in the ICU. Input from Dr. Williamson of infectious disease noted and greatly appreciated. Continue with current antimicrobials as per Dr. Williamson. 2. Acute hypoxic respiratory failure secondary to multilobar Legionella pneumonia. Input from Dr. Montes De Oca noted and greatly appreciated. Continue with mechanical ventilation as per Dr. Montes De Oca in the ICU team. 3. Hyponatremia, resolving, etiology likely secondary to poor p.o. intake as well as underlying Legionella. We will continue to monitor CMP daily. 4. Lactic acidosis, resolved. 5. Prophylaxis. Continue with Protonix for GI prophylaxis and Lovenox for DVT prophylaxis. Code Status: Full Code. Deacon Willis MD [place]
[2017-07-09] MEDS: levoFLOXacin 750 mg in D5W 150 ML BAG IVPB SCH (10:02)
[2017-07-09] MEDS: Enoxaparin 40 mg Syringe SC SCH (10:02)
[2017-07-09] MEDS: Vancomycin 1gm in NS 250ml 1 GM/250 ML BAG IVPB SCH (10:04)
[2017-07-09] MEDS: Fentanyl 1000mcg/100ml NS 1,000 MCG/100 ML BAG IV PRN ×4 (11:11→19:52)
--- NOTE | 2017-07-09 12:25 | RAD ---
HISTORY: increased pressure on vent, assess ETT COMPARISON: 07/09/2017 at 4:56 a.m. FINDINGS: LUNGS: Decreased opacity of bilateral infiltrates compared to prior examination. There is persistent hazy opacity in the left lung and shae irregular consolidation in the right perihilar region. PLEURA: No significant pleural effusion identified, no pneumothorax apparent. CARDIOVASCULAR: Normal heart size. ET tube approximately 6.8 cm above tracheal sebastian. OSSEOUS STRUCTURES: No significant abnormalities. VISUALIZED UPPER ABDOMEN: Normal. OTHER FINDINGS: None. IMPRESSION: Improving bilateral diffuse pulmonary airspace disease. Endotracheal tube unchanged.
[2017-07-09 12:57] LABS: ARTERIAL BLOOD GAS HCO3 30.2 mmol/L (21-28); ARTERIAL BLOOD GAS O2 CAPACITY 20.4 mL/dl (16-24); ARTERIAL BLOOD GAS O2 CONTENT 20.2 ML/dl (15-23); ARTERIAL BLOOD GAS PH 7.23 (7.35-7.45); ARTERIAL BLOOD HGB O2 SAT 96.2 % (95.0-98.0); CARBOXYHEMOGLOBIN 1.7 % (0.5-1.5); METHEMOGLOBIN 1.1 % (0.0-3.0)
--- NOTE | 2017-07-09 13:33 | PCM.PROC ---
Procedures Attestation:: I certify that I have explained the specified Operation(s) or Procedure(s), risks, benefits and reasonable alternatives to the Patient and/or other person responsible. The opportunity was given to ask questions and all questions answered - Arterial Line Femoral Aseptic technique was employed throughout the procedure: Hand Hygiene done prior to procedure, Full sterile barriers (mask, hair cover, sterile gown, sterile gloves), Chloraprep Antiseptic: 2 minute prep for Femoral Time Out Performed: Yes Pt. placed on Pulse Ox Monitor: Yes Central Line Prep: Chlorhexidine-Alcohol Combination Local Anesthesia Used: Lidocaine 1% Ultrasound Used for Placement: Yes Gauge (Size): 20 gauge Technique Used: Guide Wire Technique Secured by: Suture Post procedure dressing: Chlorhexidine disc (Biopatch) Patient Tolerated Procedure: well Immediate Complications: none
--- NOTE | 2017-07-09 14:02 | CP.PCM.PN ---
Subjective - Date & Time of Evaluation Date of Evaluation: 07/09/17 Time of Evaluation: 08:00 - Subjective Subjective: CRITICAL CARE PROGRESS NOTE Patient seen and examined. Last night patient was developing worsening SOB, reported he was getting tired, and electively intubated for impending respiratory failure. Patient is currently intubated, sedated. Paralytics started today with BIS and train of four monitoring. Patient remains intubated, sedated, paralyzed, HD stable, on mech ventilation, PRVC 30/18/400/70%, with Pplateau 28-31, synchronous with the vent. Patient given Lasix 40mg IV x 2, with HD stability and good UOP. Objective - Vital Signs/Intake and Output Vital Signs (last 24 hours): Temp Pulse Resp BP Pulse Ox 97 F L 91 H 31 H 103/68 98 07/09/17 04:00 07/09/17 12:00 07/09/17 08:27 07/09/17 12:00 07/09/17 12:00 Intake and Output: 07/09/17 07/09/17 06:59 18:59 Intake Total 3010 460 Output Total 1150 Balance 3010 -690 - Medications Medications: Current Medications Acetaminophen (Tylenol 325mg Tab) 650 mg PO Q6H PRN PRN Reason: Fever >100.4 F Last Admin: 07/07/17 23:00 Dose: 650 mg Budesonide (Pulmicort Respules) 0.5 mg IH [id number] [facility] ALBERTO Last Admin: 07/09/17 07:29 Dose: 0.5 mg Enoxaparin Sodium (Lovenox) 40 mg SC DAILY [facility]IO ALBERTO PRN Reason: Protocol Last Admin: 07/09/17 10:02 Dose: 40 mg Guaifenesin/Codeine Phosphate (Robitussin W/Codeine) 5 ml PO Q4H PRN PRN Reason: Cough and congestion Last Admin: 07/08/17 01:12 Dose: 5 ml Vancomycin HCl (Vancomycin 1gm) 1 gm in 250 mls @ 167 mls/hr IVPB Q12H [facility] ALBERTO PRN Reason: Protocol Last Admin: 07/09/17 10:04 Dose: 167 mls/hr Meropenem 1g/NS 100mL IVPB (Meropenem 1g/Ns 100ml Ivpb) 1 gm in 100 mls @ 100 mls/hr IVPB Q8 [facility]IO ALBERTO PRN Reason: Protocol Last Admin: 07/09/17 05:32 Dose: 100 mls/hr Fentanyl Citrate (Fentanyl Citrate/Sodium Chloride 1 Mg/100 Ml) 1,000 mcg in 100 mls @ 2 mls/hr IV .Q24H PRN; Protocol; 20 MCG/HR PRN Reason: TITRATE PER MD ORDER Last Admin: 07/09/17 11:11 Dose: 300 mcg/hr, 30 mls/hr Midazolam 100 mg/100ml in NS (Midazolam 100 Mg/100ml In Ns) 100 mg in 100 mls @ 1 mls/hr IV .Q24H PRN; Protocol; 1 MG/HR PRN Reason: Sedation Last Admin: 07/09/17 09:39 Dose: 8 mg/hr, 8 mls/hr Cisatracurium Besylate 200 mg/ (Sodium Chloride) 270 mls @ 8.11 mls/hr IV .Q24H PRN; Protocol; 1 MCG/KG/MIN PRN Reason: TITRATE PER MD ORDER Last Titration: 07/09/17 09:43 Dose: 2 mcg/kg/min, 16.23 mls/hr Doxycycline Hyclate 100 mg/ (Sodium Chloride) 100 mls @ 100 mls/hr IVPB Q12 MARIO ALBERTO PRN Reason: Protocol Last Admin: 07/09/17 11:22 Dose: 100 mls/hr Potassium Chloride (Potassium Chloride 10 Meq/100 Ml) 10 meq in 100 mls @ 100 mls/hr IVPB Q2H [facility] Stop: 07/09/17 14:14 Last Admin: 07/09/17 11:21 Dose: 100 mls/hr Levalbuterol HCl (Xopenex) 0.63 mg IH Q2H PRN PRN Reason: Shortness of Breath Last Admin: 07/09/17 10:11 Dose: 0.63 mg Levalbuterol HCl (Xopenex) 0.63 mg IH [id number] [facility] Last Admin: 07/09/17 10:50 Dose: Not Given Levofloxacin/Dextrose (Levaquin 750mg) 750 mg IVPB Q24H [facility] Last Admin: 07/09/17 10:02 Dose: 750 mg Methylprednisolone (Solu-Medrol) 60 mg IVP Q8 [facility] Last Admin: 07/09/17 05:33 Dose: 60 mg Pantoprazole Sodium (Protonix Inj) 40 mg IVP DAILY [facility]IO ALBERTO Last Admin: 07/09/17 10:02 Dose: 40 mg Promethazine HCl/Codeine (Phenergan/Codeine Oral Syrup) 5 ml PO Q4H PRN PRN Reason: Cough and congestion Zolpidem Tartrate (Ambien) 10 mg PO HS PRN; Protocol PRN Reason: Insomnia Last Admin: 07/07/17 21:05 Dose: 10 mg - Labs Labs: 07/09/17 05:20 07/09/17 05:20 PT 13.5 Seconds (9.9-11.8) H 07/07/17 00:55 INR 1.25 (0.93-1.08) H 07/07/17 00:55 APTT 41.1 Seconds (23.7-30.8) H 07/07/17 00:55 - Constitutional Appears: Well, No Acute Distress - Head Exam Head Exam: ATRAUMATIC - ENT Exam ENT Exam: Mucous Membranes Moist - Respiratory Exam Additional comments: bilateral crackles, no wheezing - Cardiovascular Exam Cardiovascular Exam: RRR, +S1, +S2 - GI/Abdominal Exam GI & Abdominal Exam: Soft, Normal Bowel Sounds - Extremities Exam Extremities Exam: Normal Inspection - Neurological Exam Additional comments: intubated, sedated, deeply sedated, paralyzed Assessment and Plan - Assessment and Plan (Free Text) Assessment: 46yo male with ARDS, mod-severe, CAP with Legionella CAP Legionella PNA Hypoxic Resp Failure ARDS 2/2 PNA, mod/severe Patient electively intubated yesterday for impending respiratory failure, after the patient complained that his breathing is getting worse. Patient is currently intubated, sedated. Paralytics started today with BIS and train of four monitoring. Patient remains intubated, sedated, paralyzed, HD stable[facility], PRVC 30/18/400/70%, with Pplateau 28-31, synchronous with the vent. Patient given Lasix 40mg IV x 2, with HD stability and good UOP. Patients CXR consistent with bilateral infiltrates, P/F ratio 168 on latest ABG , improving, currently on FiO2 70%, which is decreasing. On broad spectrum abx Merrem, Vanco, Levaquin, and Doxycycline as per ID. patient is on IV steroids. Arterial line placed for frequent blood gas monitoring Recommend: - cont with mech ventilatory support, maintain Plateau pressure<30, goal sat>88% , ARDSNET protocol, low tidal volume ventilation 6cc/kg PBW - cont with PRVC, 30/18/400/70%, current plateau pressure 30 - cont with IV steroids, Solumedrol - cont with Nimbex paralytic, with BIS and train of 4 monitoring (Accurasys trial which showed improved mortality with early paralytics in ARDS for 48h) - IV diuresis, goal net negative 1-2Liters, FACCT trial - monitor ABGs - IV abx, Merrem, Vanco, Levaquin, and Doxycycline (double cover legionella) - ECHO normal, EF 57% - monitor HH - monitor electrolytes - keep K>4, Mg>2 - keep NPO for now while on paralytics - GI ppx - DVT ppx Patient at high risk for morbidity and mortality Critical care time 60 minutes
[2017-07-09 14:26] LABS: ARTERIAL BLOOD GAS HCO3 29.9 mmol/L (21-28); ARTERIAL BLOOD GAS O2 CAPACITY 22.9 mL/dl (16-24); ARTERIAL BLOOD GAS O2 CONTENT 22.6 ML/dl (15-23); ARTERIAL BLOOD GAS PH 7.22 (7.35-7.45); ARTERIAL BLOOD HGB O2 SAT 97.1 % (95.0-98.0); CARBOXYHEMOGLOBIN 1.1 % (0.5-1.5); HHB 1.1 % (0-5); METHEMOGLOBIN 0.7 % (0.0-3.0)
[2017-07-09 15:38] LABS: ARTERIAL BLOOD GAS HCO3 30.2 mmol/L (21-28); ARTERIAL BLOOD GAS O2 CAPACITY 19.1 mL/dl (16-24); ARTERIAL BLOOD GAS O2 CONTENT 18.7 ML/dl (15-23); ARTERIAL BLOOD GAS PH 7.34 (7.35-7.45); HHB 1.8 % (0-5); METHEMOGLOBIN 1.3 % (0.0-3.0)
[2017-07-09 16:29] VITALS: TEMP 96.9
--- NOTE | 2017-07-09 16:34 | CP.PCM.PN ---
Subjective - Date & Time of Evaluation Date of Evaluation: 07/09/17 Time of Evaluation: 16:15 - Subjective Subjective: Patient seen and examined on afternoon rounds. Patient remains intubated, sedated, paralyzed with Nimbex, on PRVC FiO2 70%, PEEP 14, TV 400, RR 35. Patients ABG on the aforementioned settings is 7.34/56/82/98%. On the ventilator , Peak pressure 38, Plateau 30. Patient HD stable, last BP 99/60, P 86, Afebrile. CXR with bilateral opacities, ECHO EF 57% I spoke to Dr Libia Moyer machine spring former at [facility], and discussed the case with him about the possibility of ECMO. After discussing it with his attending Dr Moyer informed me that the patient likely does not need for ECMO right now, but may may require it at some point, and would benefit from transfer to [facility]. Will transfer to [facility] for further management. PMD Dr Jain, and [place] Dr Montes De Oca notified. Objective - Vital Signs/Intake and Output Vital Signs (last 24 hours): Temp Pulse Resp BP Pulse Ox 97 F L 87 31 H 108/62 95 07/09/17 04:00 07/09/17 14:50 07/09/17 08:27 07/09/17 12:30 07/09/17 14:50 Intake and Output: 07/09/17 07/09/17 06:59 18:59 Intake Total 3010 730 Output Total 1150 Balance 3010 -420 - Medications Medications: Current Medications Acetaminophen (Tylenol 325mg Tab) 650 mg PO Q6H PRN PRN Reason: Fever >100.4 F Last Admin: 07/07/17 23:00 Dose: 650 mg Budesonide (Pulmicort Respules) 0.5 mg IH [id number] [facility] ALBERTO Last Admin: 07/09/17 07:29 Dose: 0.5 mg Enoxaparin Sodium (Lovenox) 40 mg SC DAILY [facility]IO ALBERTO PRN Reason: Protocol Last Admin: 07/09/17 10:02 Dose: 40 mg Guaifenesin/Codeine Phosphate (Robitussin W/Codeine) 5 ml PO Q4H PRN PRN Reason: Cough and congestion Last Admin: 07/08/17 01:12 Dose: 5 ml Vancomycin HCl (Vancomycin 1gm) 1 gm in 250 mls @ 167 mls/hr IVPB Q12H [facility]IO ALBERTO PRN Reason: Protocol Last Admin: 07/09/17 10:04 Dose: 167 mls/hr Meropenem 1g/NS 100mL IVPB (Meropenem 1g/Ns 100ml Ivpb) 1 gm in 100 mls @ 100 mls/hr IVPB Q8 [facility]IO ALBERTO PRN Reason: Protocol Last Admin: 07/09/17 13:50 Dose: 100 mls/hr Fentanyl Citrate (Fentanyl Citrate/Sodium Chloride 1 Mg/100 Ml) 1,000 mcg in 100 mls @ 2 mls/hr IV .Q24H PRN; Protocol; 20 MCG/HR PRN Reason: TITRATE PER MD ORDER Last Admin: 07/09/17 13:36 Dose: 300 mcg/hr, 30 mls/hr Midazolam 100 mg/100ml in NS (Midazolam 100 Mg/100ml In Ns) 100 mg in 100 mls @ 1 mls/hr IV .Q24H PRN; Protocol; 1 MG/HR PRN Reason: Sedation Last Admin: 07/09/17 09:39 Dose: 8 mg/hr, 8 mls/hr Cisatracurium Besylate 200 mg/ (Sodium Chloride) 270 mls @ 8.11 mls/hr IV .Q24H PRN; Protocol; 1 MCG/KG/MIN PRN Reason: TITRATE PER MD ORDER Last Titration: 07/09/17 14:59 Dose: 1 mcg/kg/min, 8.11 mls/hr Doxycycline Hyclate 100 mg/ (Sodium Chloride) 100 mls @ 100 mls/hr IVPB Q12 [facility]IO ALBERTO PRN Reason: Protocol Last Admin: 07/09/17 11:22 Dose: 100 mls/hr Levalbuterol HCl (Xopenex) 0.63 mg IH Q2H PRN PRN Reason: Shortness of Breath Last Admin: 07/09/17 10:11 Dose: 0.63 mg Levalbuterol HCl (Xopenex) 0.63 mg IH [id number] [facility] AL[facility]ERTO Last Admin: 07/09/17 15:49 Dose: 0.63 mg Levofloxacin/Dextrose (Levaquin 750mg) 750 mg IVPB Q24H [facility] ALBERTO Last Admin: 07/09/17 10:02 Dose: 750 mg Methylprednisolone (Solu-Medrol) 60 mg IVP Q8 [facility] Last Admin: 07/09/17 13:54 Dose: 60 mg Pantoprazole Sodium (Protonix Inj) 40 mg IVP DAILY [facility] Last Admin: 07/09/17 10:02 Dose: 40 mg Promethazine HCl/Codeine (Phenergan/Codeine Oral Syrup) 5 ml PO Q4H PRN PRN Reason: Cough and congestion Zolpidem Tartrate (Ambien) 10 mg PO HS PRN; Protocol PRN Reason: Insomnia Last Admin: 07/07/17 21:05 Dose: 10 mg - Labs Labs: 07/09/17 05:20 07/09/17 05:20 PT 13.5 Seconds (9.9-11.8) H 07/07/17 00:55 INR 1.25 (0.93-1.08) H 07/07/17 00:55 APTT 41.1 Seconds (23.7-30.8) H 07/07/17 00:55
[2017-07-09 22:47] VITALS: PULSE 81; O2SAT 96
[2017-07-09 23:02] VITALS: BP 101/59
--- NOTE | 2017-07-12 08:15 | DS ---
ADMITTING DIAGNOSIS: Community-acquired pneumonia. DISCHARGE DIAGNOSIS: Community-acquired pneumonia secondary to Legionnaires disease. SECONDARY DIAGNOSIS: Acute hypoxic respiratory failure s/p intubation, hyponatremia, lactic acidosis , and elevated d-dimer. CONSULTATIONS: Dr. Lombardi (infectious disease) and Dr. Montes De Oca (pulmonary and critical care medicine). IMAGING STUDIES: 1. Chest x-ray (on admission) demonstrated right lower lobe pneumonia. 2. Chest x-ray (hospital day #2) demonstrated bilateral multilobar patchy infiltrates. 3. CT of the chest with IV contrast demonstrated diffuse bilateral infiltrates with lower lobe predominance but no PE. DIAGNOSTIC STUDIES: Transthoracic echocardiogram demonstrated normal LV size and function. HISTORY OF PRESENT ILLNESS: The patient is a 46-year-old man with longstanding smoking history and probable COPD who presented to [facility] Emergency Department for evaluation of a 3-day history of progressively worsening chest tightness, dyspnea, and pleuritic chest pain. The patient reports that approximately 3 days ago he was exposed to coworkers with URI type symptoms and subsequently developed his aforementioned symptoms. Over the course of the following 36 to 48 hours, he developed increasing chest tightness with a sharp stabbing right- sided chest pain associated with fevers, chills, and rigors. Given the worsening of the symptoms he presented to the ED for further evaluation. Upon arrival to the ED, he was noted to be tachycardic with a pulse in the 150s and tachypneic with a respiratory rate of 26. A chest x-ray demonstrated a right lower lobe pneumonia and the patient was admitted to the remote telemetry [facility] for continued management of community-acquired pneumonia. HOSPITAL COURSE: Upon admission to the remote telemetry [facility], the patient was evaluated by Dr. Lombardi of infectious disease and started on intravenous antibiotics. He was also evaluated by Dr. Montes De Oca of pulmonary and critical care medicine and maintained on supplemental oxygen and bronchodilators. The following day the patient was found to have positive urine Legionella antigen and antimicrobials were adjusted to Levaquin 750 mg IV daily. The patient was noted to have increasing respiratory distress and a followup chest x-ray demonstrated rapid progression of his pneumonia. Given his deteriorating status he was evaluated by the ICU team and transferred to the ICU for closer monitoring. The patient continued to have respiratory distress and was eventually intubated for impending acute hypoxic respiratory failure. After intubation a long discussion was held with the patient's family members and consideration was given for transfer to [facility] for possible ECMO and after conferring with the ICU team at [facility] the patient was accepted for transfer. He was successfully transferred on hospital day #2. CONDITION: Critical. DISPOSITION: The patient was transferred to [facility] ICU. Deacon Willis MD MTDD
== END 2017-07-09 09:40 | disposition short-term general hospital (02) | DRG 853 ==
LOC: ED 00:38 → ERH 03:31 → 3RNO 05:14 → OBSVTOIN 07-08 07:40 → CCU 07-08 10:21
PROVIDERS: ADMIT Student in an Organized Health Care Education/Training Program; ATTEND Student in an Organized Health Care Education/Training Program
PROC: 3E0F7GC Introduction of Other Therapeutic Substance into Respiratory Tract, Via Natural or Artificial Opening (ICD-10-PCS; 2017-07-07)
PROC: 5A1935Z Respiratory Ventilation, Less than 24 Consecutive Hours (ICD-10-PCS; 2017-07-08)
PROC: 0BH17EZ Insertion of Endotracheal Airway into Trachea, Via Natural or Artificial Opening (ICD-10-PCS; 2017-07-08)
PROC: 5A09357 Assistance with Respiratory Ventilation, Less than 24 Consecutive Hours, Continuous Positive Airway Pressure (ICD-10-PCS; 2017-07-08)
PROC: 0B9F8ZX Drainage of Right Lower Lung Lobe, Via Natural or Artificial Opening Endoscopic, Diagnostic (ICD-10-PCS; principal; 2017-07-09)
DX: A41.9 Sepsis, unspecified organism (principal); A48.1 Legionnaires' disease; J96.01 Acute respiratory failure with hypoxia; Z99.11 Dependence on respirator [ventilator] status; E87.2 Acidosis; J44.0 Chronic obstructive pulmonary disease with (acute) lower respiratory infection; E87.1 Hypo-osmolality and hyponatremia; R65.20 Severe sepsis without septic shock; G89.29 Other chronic pain; J20.9 Acute bronchitis, unspecified; E87.6 Hypokalemia; E83.39 Other disorders of phosphorus metabolism; E66.9 Obesity, unspecified; F17.210 Nicotine dependence, cigarettes, uncomplicated; Y95 Nosocomial condition; Z87.442 Personal history of urinary calculi; Z90.81 Acquired absence of spleen; Z90.49 Acquired absence of other specified parts of digestive tract